=== PATIENT | female | born 1955 | race Caucasian/White ===

== ENCOUNTER 2023-04-22 12:07 | Outpatient (CLI) | payer MEDICARE, SELFPAY ==
[2023-04-22 13:30] LABS: Alanine Aminotransferase 33 U/L (6-35); Albumin Level 4.3 g/dL (3.5-5.1); Alkaline Phosphatase 49 U/L (38-126); Anion Gap 4 mmol/L (8-16); Aspartate Amino Transferase 25 U/L (14-36); Bilirubin,Total 0.7 mg/dL (0.2-1.3); Blood Urea Nitrogen 12 mg/dL (7-17); CRP 0.5 mg/dL (<1.0); Calcium 8.9 mg/dL (8.4-10.2); Carbon Dioxide 30 mmol/L (22-30); Chloride 104 mmol/L (98-107); Estimated Glomerular Filt Rate > 60; Glucose 95 mg/dL (65-110); Potassium 3.6 mmol/L (3.4-5.0); Sodium 138 mmol/L (137-145)
[2023-04-22 14:43] LABS: Hematocrit 41.9 % (37.0-47.0); Hemoglobin 13.3 g/dL (12.0-15.0); Mean Corpuscular HGB Conc 31.7 g/dl (32-36); Mean Corpuscular Hemoglobin 29.9 pg (26-34); Mean Corpuscular Volume 94.2 fl (80-100); Mean Platelet Volume 9.9 fl (7.4-10.4); Platelet Count Result 378 k/mm3 (150-375); Red Blood Count 4.45 M/mm3 (4.2-5.4); Red Cell Distribution Width 13.5 % (11.5-14.5); White Blood Count 7.3 K/mm3 (4.5-10.0)
[2023-04-22 16:16] LABS: Erythrocyte Sedimentation Rate 16 mm/hr (0-20)
== END 2023-04-22 12:08 | disposition home or self-care (01) ==
PROVIDERS: PCP Family Medicine; Visit Provider Nurse Practitioner Family
DX: K51.90 Ulcerative colitis, unspecified, without complications (principal); K22.70 Barrett's esophagus without dysplasia
CPT/HCPCS: 36415; 80053; 85027; 85652; 86140

== ENCOUNTER 2023-05-02 09:00 | Outpatient (NON) | payer MEDICARE, SELFPAY ==
[2023-05-08 14:56] LABS: Calprotectin, Stool 265 mcg/g
== END 2023-05-02 09:01 | disposition home or self-care (01) ==
LOC: ANHLAB 13:19
PROVIDERS: PCP Family Medicine; Visit Provider Nurse Practitioner Family
DX: K51.90 Ulcerative colitis, unspecified, without complications (principal)
CPT/HCPCS: 83993

== ENCOUNTER 2023-05-31 00:52 | Day surgery (SDC) | payer MEDICARE, SELFPAY ==
[2023-05-17 13:58] VITALS: BMI 28.2
--- NOTE | 2023-05-27 14:11 | SUR.PREOP ---
Patient called regarding upcoming procedure. Reviewed preop instructions, appointment times, and procedure prep.
[2023-05-31 09:00] VITALS: BP 140/71; PULSE 65; RESP 18; TEMP 36.2; O2SAT 100
[2023-05-31] MEDS: LACTATED RINGERS 1,000 ML 150 ML IV CONT (09:01)
--- NOTE | 2023-05-31 09:49 | WPDANESEPPF ---
Anes - Initial Pre Proc Eval Procedure: Operation Date: 05/31/23 10:00 Proposed Procedures p Esophagogastroduodenoscopy & Colonoscopy - Osbaldo Johnston MD Date/Time: 05/31/23 09:49 Surgeon: Osbaldo Johnston MD Pre Op Diagnosis: Tracey's esoph,GERD,diaphragmatic hernia; U.C. Patient Data Age: 68 Gender: F Height: 1.57 m Weight: 67.7 kg Last Vital Signs Temp 97.1 F L 05/31/23 09:00 Pulse 65 05/31/23 09:00 Resp 18 05/31/23 09:00 BP 140/71 05/31/23 09:00 Pulse Ox 100 05/31/23 09:00 O2 Del Method Room Air 05/31/23 09:00 Allergies Allergy/AdvReac Type Severity Reaction Status Date / Time No Known Allergies Allergy Unknown Verified 05/17/23 13:54 Home Medications Medication Instructions Recorded Confirmed Type amlodipine 10 mg tablet 10 mg PO DAILY 04/22/23 05/17/23 History calcium carbonate 600 mg calcium 600 mg PO DAILY 04/22/23 05/17/23 History (1,500 mg) tablet (Calcium) cholecalciferol (vitamin D3) 325 325 mcg PO WEEKLY 04/22/23 05/17/23 History mcg (13,000 unit) capsule mesalamine 1.2 gram tablet,delayed 4.8 g PO DAILY 04/22/23 05/17/23 History release omeprazole 40 mg capsule,delayed 40 mg PO BID 1 month #60 caps 04/22/23 05/17/23 Rx release Patient hx anesthesia problems: none Family hx anesthesia problems: none Results Review: All pre-operative results and documents have been reviewed as part of the pre-operative evaluation. [facility] Past Medical History Medical History (Updated 04/22/23 @ 14:23 by HERBERT Mario) Barretts esophagus Family hx of colon cancer GERD (gastroesophageal reflux disease) Hiatal hernia HTN (hypertension) Ulcerative colitis Social History Social History Smoking packs per day: 0.5 Smoking cigarettes per day: 10.0 Years smoked: 10 Smoking pack-years: 5.00 Smoking status: Former smoker Tobacco type: cigarettes Second hand tobacco smoke exposure: No Alcohol intake: current Drinks per week: 3 Substance use type: does not use Living arrangements: with family Spiritual care concerns: No Anes - Eval Final PreProcedure Day of Procedure 05/31/23 09:49 Patient weight: normal Heart: regular rate and rhythm Lungs: clear to auscultation Airway: Mallampati scale class II Neurological: alert and oriented Last oral intake: >/= 8 hours ASA classification: III Emergent: no Anesthetic plan: proceed Anesthesia type and monitoring: general GIVS and standard monitoring Results Review: All pre-operative results and documents have been reviewed as part of the pre-operative evaluation. Informed Consent: The patient's anesthetic plan and its attendant risks and benefits were discussed with the patient/family/POA. Questions were solicited and answers provided to the satisfaction of the patient/family/POA.
--- NOTE | 2023-05-31 09:59 | PM.HPGS ---
History of Present Illness History of Present Illness Consent: Risks, benefits, and alternatives have been discussed and questions answered. Patient agrees to proceed with procedure. Chief complaint: Tracey's esoph,GERD,diaphragmatic hernia; U.C. Narrative: Rosario Mckeon is a 68 year old female with Tracey's esophagus on ppi (she is supposed to use twice daily but sometimes forgets), also left sided UC diagnosed ~ 10 years ago on mesalamine. Never been on biologics. Last egd and colonoscopy 2019 (right colon was normal) Review of Systems Constitutional: Constitutional: Denies headache(s) and Denies weakness Eyes: Eyes: Denies blurry vision ENT: Reports Normal hearing present, Denies headache(s) and Denies neck pain Cardiovascular: Cardiovascular: Denies chest pain and Denies dyspnea Respiratory: Respiratory: Denies dyspnea Gastrointestinal: Gastrointestinal: Reports no additional gastrointestinal complaints Genitourinary: Genitourinary: Denies dysuria Musculoskeletal: Musculoskeletal: Denies neck pain Integumentary/Breasts: Skin/Breast: Denies dry skin Neurologic: Reports Normal hearing present, Denies headache(s) and Denies weakness Psychiatric: Psychiatric: Denies anxiety Endocrine: Endocrine: Denies change in body appearance Hematologic/Lymphatic: Hematologic/Lymphatic: Denies easy bleeding Allergic/Immunologic: Allergic/Immunologic: Denies urticaria PMFSH Past Medical History Medical History (Updated 05/31/23 @ 10:00 by Osbaldo Johnston MD) Barretts esophagus Family hx of colon cancer GERD (gastroesophageal reflux disease) Hiatal hernia HTN (hypertension) Left sided ulcerative colitis Ulcerative colitis Social History Social History Smoking packs per day: 0.5 Smoking cigarettes per day: 10.0 Years smoked: 10 Smoking pack-years: 5.00 Smoking status: Former smoker Tobacco type: cigarettes Second hand tobacco smoke exposure: No Alcohol intake: current Drinks per week: 3 Substance use type: does not use Living arrangements: with family Spiritual care concerns: No Meds Home Medications and Allergies Home Medications Medication Instructions Recorded Confirmed Type amlodipine 10 mg tablet 10 mg PO DAILY 04/22/23 05/17/23 History calcium carbonate 600 mg calcium 600 mg PO DAILY 04/22/23 05/17/23 History (1,500 mg) tablet (Calcium) cholecalciferol (vitamin D3) 325 325 mcg PO WEEKLY 04/22/23 05/17/23 History mcg (13,000 unit) capsule mesalamine 1.2 gram tablet,delayed 4.8 g PO DAILY 04/22/23 05/17/23 History release omeprazole 40 mg capsule,delayed 40 mg PO BID 1 month #60 caps 04/22/23 05/17/23 Rx release Allergies Allergy/AdvReac Type Severity Reaction Status Date / Time No Known Allergies Allergy Unknown Verified 05/17/23 13:54 Vital Signs Vital Signs - 24 hr 05/31/23 09:00 Temperature 97.1 F L Pulse Rate 65 Respiratory Rate 18 Blood Pressure 140/71 Pulse Oximetry 100 Oxygen Delivery Room Air Exam Const: General: comfortable and no acute distress HENMT: Face/Nose/Sinus: Normal nares present Eyes: General: appearance normal, both eyes and all related structures Neck: Neck: no JVD Resp: Auscultation: clear to auscultation bilaterally Cardio: Rate: regular rate Rhythm: regular rhythm GI: Inspection: non-distended GI Palp: Yes Soft to palpation Skin: General skin exam: normal color Neuro: General: gait normal Speech: normal speech Extrem: General: normal to inspection Psych: Mental Status: mental status grossly normal Assessment and Plan Assessment and plan (1) Barretts esophagus: Code(s): K22.70 - Tracey's esophagus without dysplasia Status: Acute Assessment and Plan: egd with bx on ppi (2) Left sided ulcerative colitis: Code(s): K51.50 - Left sided colitis without complications Status: Acute Assessment and Plan: colonoscopy on jones
--- NOTE | 2023-05-31 10:16 | SUR.OPER ---
EGD END 1010 COLONOSCOPY START 101
[2023-05-31 10:27] VITALS: BP 99/59; PULSE 70; RESP 18; O2SAT 100
[2023-05-31 10:37] VITALS: BP 124/79; PULSE 72; RESP 18; O2SAT 100
[2023-05-31 10:47] VITALS: BP 131/80; PULSE 70; RESP 18; O2SAT 100
== END 2023-05-31 11:10 | disposition home or self-care (01) ==
PROVIDERS: PCP Family Medicine; Visit Provider Internal Medicine Gastroenterology
PROC: 0DJ08ZZ Inspection of Upper Intestinal Tract, Via Natural or Artificial Opening Endoscopic (ICD-10-PCS; CPT 43235; principal; 2023-05-31 10:00)
DX: K51.50 Left sided colitis without complications (principal); K57.30 Diverticulosis of large intestine without perforation or abscess without bleeding; K64.8 Other hemorrhoids; K22.70 Barrett's esophagus without dysplasia; K44.9 Diaphragmatic hernia without obstruction or gangrene; K29.50 Unspecified chronic gastritis without bleeding; K21.00 Gastro-esophageal reflux disease with esophagitis, without bleeding; I10 Essential (primary) hypertension; Z80.0 Family history of malignant neoplasm of digestive organs; Z87.891 Personal history of nicotine dependence
CPT/HCPCS: 45380; 43239; 88305; J2704; J7120

== ENCOUNTER 2023-09-02 07:37 | Outpatient (CLI) | payer MEDICARE, SELFPAY ==
--- NOTE | ~2023-09-02 | CT_ITS ---
NAME: Rosario Mckeon DATE OF : 51 EXAMINATION: CT ABDOMEN AND PELVIS DATE: 09/02/23 at 7:51 AM INDICATION: Unspecified abdominal pain. TECHNIQUE: Computed tomography (CT) of the abdomen and pelvis was performed with 100 mL Omnipaque 350 intravenous contrast. Automated exposure control and iterative reconstruction technique were employed. The dose-length product was 393 mGy-cm. COMPARISON: None. FINDINGS: The visualized portions of the lung bases demonstrate mild atelectasis. No pleural effusion. Cardiomegaly is noted. No pericardial effusion. There is a large sliding hiatal hernia. The liver, gallbladder, spleen, pancreas, and adrenal glands are normal. There is cortical thinning of the kidneys. There is diverticulosis of the colon without evidence of diverticulitis. The appendix is normal. There are no pathologically enlarged lymph nodes. There is no free intraperitoneal fluid. There is severe lower lumbar spondylosis. Lumbar dextroscoliosis is noted. IMPRESSION: 1. Large sliding hiatal hernia. Reviewed, dictated and finalized at location A. MTDD
[2023-09-02 07:55] LABS: Estimated Glomerular Filt Rate > 60
== END 2023-09-02 07:38 | disposition home or self-care (01) ==
LOC: ANHIMG 07:38
PROVIDERS: PCP Family Medicine; Visit Provider Nurse Practitioner Family
DX: K51.50 Left sided colitis without complications (principal); R10.9 Unspecified abdominal pain
CPT/HCPCS: 36415; 74177; Q9967

== ENCOUNTER 2023-10-25 08:51 | Outpatient (CLI) | payer MEDICARE, SELFPAY ==
[2023-10-25 09:24] LABS: Hematocrit 38.2 % (37.0-47.0); Hemoglobin 12.2 g/dL (12.0-15.0); Mean Corpuscular HGB Conc 31.9 g/dl (32-36); Mean Corpuscular Volume 93.9 fl (80-100); Platelet Count Result 344 k/mm3 (150-375); Red Blood Count 4.07 M/mm3 (4.2-5.4); Red Cell Distribution Width 14.2 % (11.5-14.5); White Blood Count 7.5 K/mm3 (4.5-10.0)
[2023-10-25 09:42] LABS: Alanine Aminotransferase 22 U/L (6-35); Albumin Level 4.1 g/dL (3.5-5.1); Alkaline Phosphatase 40 U/L (38-126); Anion Gap 6 mmol/L (4-12); Aspartate Amino Transferase 23 U/L (14-36); Bilirubin,Total 0.8 mg/dL (0.2-1.3); Blood Urea Nitrogen 15 mg/dL (7-17); CRP < 0.5 mg/dL (<1.0); Carbon Dioxide 28 mmol/L (22-30); Chloride 107 mmol/L (98-107); Estimated Glomerular Filt Rate > 60; Glucose 98 mg/dL (65-110); Potassium 3.4 mmol/L (3.4-5.0); Sodium 141 mmol/L (137-145)
[2023-10-25 09:58] LABS: Erythrocyte Sedimentation Rate 22 mm/hr (0-20)
[2023-11-01 00:54] LABS: Calprotectin, Stool 689 mcg/g
== END 2023-10-25 08:52 | disposition home or self-care (01) ==
LOC: ANHLAB 08:53
PROVIDERS: PCP Family Medicine; Visit Provider Nurse Practitioner Family
DX: K51.90 Ulcerative colitis, unspecified, without complications (principal)
CPT/HCPCS: 36415; 80053; 83993; 85027; 85652; 86140

== ENCOUNTER 2024-01-05 10:58 | Outpatient (CLI) | payer MEDICARE, SELFPAY ==
[2024-01-11 21:48] LABS: Calprotectin, Stool 2640 mcg/g
== END 2024-01-05 10:59 | disposition home or self-care (01) ==
LOC: ANHLAB 10:59
PROVIDERS: PCP Family Medicine; Visit Provider Nurse Practitioner Family
DX: K51.50 Left sided colitis without complications (principal)
CPT/HCPCS: 83993

== ENCOUNTER 2024-03-01 08:31 | Outpatient (CLI) | payer MEDICARE, SELFPAY ==
--- NOTE | ~2024-03-01 | XR_ITS ---
EXAMINATION: XR small bowel follow through DATE: 03/01/2024 10:10 INDICATION: Colon inflammation. TECHNIQUE: Oral contrast was administered, and a time course of radiographs of the abdomen was obtain ed. Fluoroscopy of the small bowel was performed. Fluoroscopy exposure time was 0.2 minutes. The tota l number of images was 12. COMPARISON: CT abdomen pelvis 09/02/2023 FINDINGS: There are no dilated loops of bowel. There is no abnormal mass or stricture. The terminal ileum is no rmal. Transit time from the stomach to proximal colon was approximately 45 minutes. IMPRESSION: 1. Normal small bowel series. Reviewed, dictated and finalized at location A.
== END 2024-03-01 08:32 | disposition home or self-care (01) ==
LOC: ANHIMG 08:33
PROVIDERS: PCP Family Medicine; Visit Provider Nurse Practitioner Family
DX: R19.5 Other fecal abnormalities (principal)
CPT/HCPCS: 74250

== ENCOUNTER 2024-05-10 11:05 | Outpatient (CLI) | payer MEDICARE, SELFPAY ==
[2024-05-10 12:23] LABS: Hematocrit 36.2 % (37.0-47.0); Hemoglobin 11.8 g/dL (12.0-15.0); Mean Corpuscular HGB Conc 32.6 g/dl (32-36); Mean Corpuscular Hemoglobin 30.6 pg (26-34); Mean Corpuscular Volume 93.8 fl (80-100); Mean Platelet Volume 9.4 fl (7.4-10.4); Platelet Count Result 397 k/mm3 (150-375); Red Blood Count 3.86 M/mm3 (4.2-5.4); Red Cell Distribution Width 13.3 % (11.5-14.5); White Blood Count 9.7 K/mm3 (4.5-10.0)
[2024-05-10 12:43] LABS: Alanine Aminotransferase 14 U/L (6-35); Albumin Level 4.2 g/dL (3.5-5.1); Alkaline Phosphatase 46 U/L (38-126); Anion Gap 5 mmol/L (4-12); Aspartate Amino Transferase 21 U/L (14-36); Bilirubin,Total 0.6 mg/dL (0.2-1.3); Blood Urea Nitrogen 17 mg/dL (7-17); CRP < 0.5 mg/dL (<1.0); Calcium 8.7 mg/dL (8.4-10.2); Carbon Dioxide 27 mmol/L (22-30); Chloride 107 mmol/L (98-107); Estimated Glomerular Filt Rate > 60; Glucose 93 mg/dL (65-110); Potassium 3.7 mmol/L (3.4-5.0); Sodium 139 mmol/L (137-145)
[2024-05-10 13:02] LABS: Erythrocyte Sedimentation Rate 50 mm/hr (0-20)
[2024-05-14 15:53] LABS: NIL 0.01 IU/mL; Quantiferon TB Plus, 1T NEGATIVE (NEGATIVE); TB2-NIL 0.01 IU/mL
== END 2024-05-10 11:06 | disposition home or self-care (01) ==
LOC: ANHLAB 11:07
PROVIDERS: PCP Family Medicine; Visit Provider Nurse Practitioner Family
DX: K51.50 Left sided colitis without complications (principal)
CPT/HCPCS: 36415; 80053; 85027; 85652; 86038; 86039; 86140; 86480

== ENCOUNTER 2024-05-14 14:00 | Outpatient (CLI) | payer MEDICARE, SELFPAY ==
[2024-05-14 17:40] LABS: Toxigenic C. Diff NEGATIVE (NEGATIVE)
[2024-05-16 14:02] LABS: Trichrome Ova and Parasites STATUS: FINAL
== END 2024-05-14 14:01 | disposition home or self-care (01) ==
PROVIDERS: PCP Family Medicine; Visit Provider Nurse Practitioner Family
DX: R19.5 Other fecal abnormalities (principal); K51.50 Left sided colitis without complications
CPT/HCPCS: 83993; 87045; 87177; 87209; 87427; 87449; 87493

== ENCOUNTER 2024-08-03 10:20 | Outpatient (CLI) | payer MEDICARE, SELFPAY ==
--- OUTSIDE RECORDS SUMMARY | 2024-08-03 10:39 | XMS_ITS | Encounter Summary ---
Author Organization [facility] Address [facility] [place] [address] Care Team Providers Care Livestock Nutritionist Name Role Phone Robbin Beckham MD Primary Care Provider Encounter Details Date Type Department Care Team (Late st Contact Info) Description 12/28/2021 Therapy Plan [facility] [address] [place] [address] Ivanna Yip MD [address] [place] [phone] Social History Tobacco Use Types Packs/Day Years Used Date Smoking Tobacco: Former Cigarettes Q uit: 2006 Smokeless Tobacco: Never Comments:former user tobacco - quit 2006 Alcohol Use Standard Drinks/Week Comments Yes 0 (1 standard drink = 0.6 oz pur e alcohol) social PHQ-2 Answer Date Recorded PHQ-2 Score - If the patient scores above 3, please move on to questions 3-9 0 11/13/2021 Comments No Sex and Gender Information Value Date Recorded Sex Assigned at Female 03/12/2019 7:27 AM CDT Legal Sex Female 5:32 PM CDT Gender Identity Female 03/12/2019 7:27 AM CDT Sexual Orientation Straight 03/12/2019 7: 27 AM CDT Occupation Industry Job Start Date Job End Date Not on file Not on file Not on file Not on file COVID-19 Exposure Response Date Recorded In the last 10 days, have yo u been in contact with someone who was confirmed or suspected to have Coronavirus/COVID-19? No / Unsure 12/31/2021 8:08 AM CDT documented as of this encounter Plan of Treatment Not on file documented as of this encounter Visit Diagnoses Diagnosis Age-related osteoporosis without current pathological fracture- Primary Senile osteoporosis documented in this encounter Additional Health Concerns Infection Onset Date Last Indicated Resolved Time COVID-19 Rule Out 08/05/2022 08/05/2022 08/05/2022 10:03 AM DEBONE PROCESSING SUPERVISOR COVID-19 Confirmed 08/05/2022 08/05/2022 12:32 AM CDT Assessment Noted Time PHQ-9 Depression Total Score: 0 05/07/20 9:12 AM DEBONE PROCESSING SUPERVISOR documented as of this encounter Care Teams Livestock Nutritionist Relationship Specialty [place] [address] [place] [address] PCP - General FAMILY PRACTICE 05/10/18 documented as of this encounter
--- OUTSIDE RECORDS SUMMARY | 2024-08-03 10:39 | XMS_ITS | Referral Summary ---
Author Organization [facility] Address [address] [place] [address] Care Team Providers Care Bread Molder Name Role Phone Robbin Beckham MD Primary Care Provider [phone] Amada Barahona NP Unavailable [phone] Haydee Fleming Unavailable [phone] Encounters Date Type Department Care Team Description 07/24/2024 10:45 AM METAL PATTERNMAKER Office Visit [facility] Orthopaedic Surgery [address] [address] [place] [address] Solitario Serna MD Rotator cuff arthropathy of left shoulder (Primary Dx); Traumatic complete tear of left rotator cuff, initial encounter 07/23/2024 Telephone [facility] [address] [facility] [address] [place] [address] Ivanna Yip MD 06/05/2024 3:20 PM METAL PATTERNMAKER - 06/05/2024 11:59 PM METAL PATTERNMAKER Hospital Encounter [facility] [address] [place] [id number] Discharge Disposition: Discharge to home or self care 06/05/2024 1:19 PM METAL PATTERNMAKER - 06/05/2024 11:59 PM METAL PATTERNMAKER Hospital Encounter [facility] [address] [place] [address] Discharge Disposition: Discharge to home or self care 06/05/2024 1:30 PM METAL PATTERNMAKER Office Visit [facility] Orthopaedic Surgery [address] [place] [phone] Benjamin Mora PA Rotator cuff arthropathy of left shoulder (Primary Dx); Chronic left shoulder pain from Last 3 Months Allergies No known active allergies Medications amLODIPine (NORVASC) 10 mg tablet Take 1 tablet (10 mg total) by mouth daily 5 8 Active mesalamine (LIALDA) 1.2 gram EC tabletIndicatio ns:Ulcerative Colitis TAKE 4 TABLETS BY MOUTH DAILY 5 8 Active omeprazole (PriLOSEC) 40 mg capsule Take 1 capsule (40 mg total) by mouth 1 8 Active ergocalciferol (VITAMIN D) 50,000 unit capsuleIndicati ons:Vitamin D Deficiency Take one capsule twice a week x 12 weeks then, repeat labs 24 capsule 8 Active Additional Information Patient not taking.Reported on 12/28/2022 clobetasol (TEMOVATE) 0.05 % cream SAURABH EXT AA BID 0 9 Active hydrocortisone 1 % cream SAURABH EXT AA BID 1 9 Active potassium chloride ER (KLOR-CON) 20 mEq CR tablet Take 20 mEq by mouth daily 9 Active calcium carbonate (CALCIUM 600 ORAL) Take by mouth 600MG SOME DAYS Active cholecalciferol (VITAMIN D-3) 400 unit capsule Active Active Problems Problem Noted Date Diagnosed Date Age-related osteoporosis wit hout current pathological fracture 05/04/2018 Closed stable burst fracture of eighth thoracic vertebra with routine healing 03/30/2018 Social History Tobacco Use Types Packs/Day Years Used Date Smoking Tobacco: Former Cigarettes Q uit: 2006 Smokeless Tobacco: Never Alcohol Use Standard Drinks/Week Comments Defer 0 (1 standard drink = 0.6 oz pur e alcohol) Comments Unknown Sex and Gender Information Value Date Recorded Sex Assigned at Not on file Legal Sex Female 3:39 AM METAL PATTERNMAKER Gender Identity Not on file Sexual Orientation Not on file 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 file Not on file Not on file Last Filed Vital Signs Vital Sign Reading Time Taken Comments Blood Pressure - - Pulse - - Temperature - - Respiratory Rate - - Oxygen Saturation - - Inhaled Oxygen Concentration - - Weight 67.6 kg (149 lb) 06/05/2024 1:16 PM METAL PATTERNMAKER Height 157.5 cm (5' 2 ) 06/05/2024 1:16 PM METAL PATTERNMAKER Body Mass Index 27.25 06/05/2024 1:16 PM METAL PATTERNMAKER Plan of Treatment Not on file Procedures Procedure Name Priority Date/Time Associated Diagnosis Comments XR TRANSFER OF OUTSIDE FILMS Routine 06/05/2024 3:20 PM METAL PATTERNMAKER XR SHOULDER LEFT 2 OR MORE VIEWS Schedule Routine, Read Routine (OP Routine) 06/05/2024 1:26 PM METAL PATTERNMAKER Chronic left shoulder pain DEXA TBS AXIAL SKELETON BONE DENSITY 1 OR MORE SITES Schedule Routine, Read Routine (OP Routine) 12/28/2022 10:49 AM CDT Age-related osteoporosis without current pathological fracture from Last 3 Months or Most Recently Relevant to Health Maintenance Results * XR Outside Reference (06/05/2024 3:20 PM METAL PATTERNMAKER) Impressions [facility] - 06/05/2024 3:20 PM METAL PATTERNMAKER These images are for Reference purposes only and have not been reviewed by [facility] Radiology. There will be no report generated by a [facility] Radiologist. Narrative [facility] - 06/05/2024 3:20 PM METAL PATTERNMAKER EXAMINATION: Images For Reference Purposes Only us Benjamin PEDERSEN IMDelia XR PROCEDURES Final Result [facility] * XR Shoulder Left 2+ View (06/05/2024 1:26 PM METAL PATTERNMAKER) Anatomical Region Laterality Modality Upper Extremities, Shoulder Left Comp uted Radiography 06/05/2024 1:27 PM METAL PATTERNMAKER Impressions 06/05/2024 1:27 PM METAL PATTERNMAKER Mild left rotator cuff arthropathy and moderate left acromioclavicular osteoarthritis. Electronically signed by: Vivek Armas M.D. Narrative 06/05/2024 1:27 PM METAL PATTERNMAKER EXAMINATION: XR SHOULDER LEFT 2 OR MORE VIEWS HISTORY: left shoulder pain COMPARISON: None available FINDINGS: No acute fracture. There is superior subluxation of the humerus with respect to the glenoid consistent with rotator cuff arthropathy. Moderate left acromio clavicular and mild left glenohumeral joint osteoarthritis. Partially imaged degenerative disc and joint disease in the cervical spine. Procedure Note Vivek Armas MD - 06/05/2024 EXAMINATION: XR SHOULDER LEFT 2 OR MORE VIEWS HISTORY: left shoulder pain COMPARISON: None available FINDINGS: No acute fracture. There is superior subluxation of the humerus with respect to the glenoid consistent with rotator cuff arthropathy. Moderate left acromio clavicular and mild left glenohumeral joint osteoarthritis. Partially imaged degenerative disc and joint disease in the cervical spine. IMPRESSION: Mild left rotator cuff arthropathy and moderate left acromioclavicular osteoarthritis. Electronically signed by: Vivek Armas M.D. Benjamin PEDERSEN IMG XR PROCEDURES Final Result * Dexa TBS Axial Skeleton Bone Density 1 or more sites (12/28/2022 10:49 AM CDT) Anatomical Region Laterality Modality Wrist, Body N/A Radiographic Anai ging Narrative 12/28/2022 8:41 PM CDT Patient Name: Oscar Mckeon Date of : 1955 Date of scan: 12/28/2022 Bone mineral density was performed on a Eval[employer] Discovery Densitometer. Based on machine cross-calibration and precision studies the least significant changes of this densitometer is 0.024 g/cm2 at the spine, 0.020 g/cm2 at the total proximal femur, and 0.014g/cm2 at the forearm. HISTORY: This is a 67 y.o. postmenopausal female with a history of osteoporosis, ulcerative colitis, and vitamin D deficiency. She reports that she quit smoking about 16 years ago. She has never used smokeless tobacco. Currently on treatment with vitamin D and previously treated with zoledronic acid (Reclast) and hormone replacement therapy. INDICATIONS: Menopause status, history of prior vertebral fracture, vitamin D deficiency, and history of osteoporosis. FINDINGS: BONE MINERAL DENSITY OF THE LUMBAR SPINE Bone Mineral Density (BMD) of the lumbar spine was measured from L1-L3 and the average density was calculated to be 0.890 gm/cm2. This corresponds to a T-score (standard deviations from the mean of young adults) of -1.2. When compared to the previous study of 12/08/2021 there has been a 0.025 gm/cm (2.8%) increase in bone density that is considered significant. BONE MINERAL DENSITY OF THE PROXIMAL FEMUR Bone Mineral Density (BMD) of the left hip total was found to be 0.767 gm/cm2. This corresponds to a T-score standard deviations from the mean of young adults of -1.4. Femoral neck is 0.679 gm/cm2 with a T-score (standard deviations from the mean of young adults) of -1.5. When compared to the previous study of 12/08/2021 there has been a -0.037 gm/cm (-4.6%) decrease in bone density that is considered significant. SUMMARY: Bone mineral density shows evidence of low bone mass at the lumbar spine and proximal femur and moderately increased fracture risk (Osteopenia). There is a significant increase noted in the spine and a significant decrease noted in the hip since the previous exam. L4 excluded from bone mineral density analysis of the lumbar spine to compare to previous scan. The lumbar spine Trabecular Bone Score is 1.139 which suggests degraded bone microarchitecture compared to the general population. Final decisions regarding diagnostic or therapeutic recommendations should include BMD, TBS, additional clinical risk factors as well the clinical context of the patient. Please see attached TBS results for further details. ADDITIONAL COMMENTS: Postmenopausal Women and Men Over 50: Diagnostic criteria: Osteoporosis: BMD at or below -2.5 T-score; Osteopenia (low bone mass): BMD between -1.0 and -2.5 T-score. If the patient has a history of a fragility fracture, a fracture that occurred with trauma equivalent to a fall from a standing position or less, then the diagnosis is osteoporosis regardless of bone density. The history and data sections of the bone mineral density scan were prepared by Edie Nassar)([facility]) who is accredited by the International Society of Clinical Densitometry. The overall patient assessment and scan interpretation were performed by Ivanna Yip M.D. who is certified by the International Society of Clinical Densitometry. [id number] Ivanna Yip MD IMG DXA PROCEDURES Final Resu lt from Last 3 Months or Most Recently Relevant to Health Maintenance Insurance [employer] [facility] Loopback ACCESS MEDICARE [employer] MEDICARE [employer] MEDICARE [employer] Care Teams Bread Molder Relationship Specialty [place] [address] [place] [address] PCP - General 01/06/18 [place] [address] [place] [address] Family Practice 01/06/18 Haydee Fleming, SLAVA [address] [place] [address] Physician Oven Technician Physician Oven Technician 05/08/24
--- OUTSIDE RECORDS SUMMARY | 2024-08-03 10:39 | XMS_ITS | Encounter Summary ---
Author Organization [facility] Address [facility] [place] [address] Care Team Providers Care Sequencing Machine Operator Name Role Phone Robbin Beckham MD Primary Care Provider [phone] Encounter Details Date Type Department Care Team (Late st Contact Info) Description 10/11/2023 [employer] Message Enc [facility] Medical Group Family & Internal Medicine [facility] [address] [place] [phone] [place] Provider Due for appt Social History Tobacco Use Types Packs/Day Years Used Date Smoking Tobacco: Former Cigarettes Q uit: 2006 Passive Smoke Exposure: Past Smokeless Tobacco: Never Comments:former user tobacco - quit 2006 Alcohol Use Standard Drinks/Week Comments Yes 0 (1 standard drink = 0.6 oz pur e alcohol) social (2 per week) PHQ-2 Answer Date Recorded Patient Health Questionnaire-2 Score 0 10/10/2023 Comments No Sex and Gender Information Value Date Recorded Sex Assigned at Female 03/12/2019 7:27 AM CDT Legal Sex Female 5:32 PM CDT Gender Identity Female 03/12/2019 7:27 AM CDT Sexual Orientation Straight 03/12/2019 7: 27 AM CDT Occupation Industry Job Start Date Job End Date Not on file Not on file Not on file Not on file documented as of this encounter Plan of Treatment Not on file documented as of this encounter Visit Diagnoses Not on filedocumented in this encounter Additional Health Concerns Assessment Noted Time PHQ-9 Depression Total Score: 0 11/18/20 21 9:12 AM PRODUCTION TECHNICIAN documented as of this encounter Care Teams Sequencing Machine Operator Relationship Specialty Start [place] [address] [place] [address] PCP - General FAMILY PRACTICE 05/10/18 documented as of this encounter
--- OUTSIDE RECORDS SUMMARY | 2024-08-03 10:39 | XMS_ITS | Clinical Summary ---
Author Organization [facility] Address [address] [place] [address] Care Team Providers Care Dough Cutter Name Role Phone Robbin Beckham MD Primary Care Provider [phone] Amada Barahona NP Unavailable [phone] Haydee Fleming Unavailable [phone] Allergies No known active allergies Medications amLODIPine [...] eighth thoracic vertebra with routine healing 03/30/2018 Encounters Date Type Department Care Team Description 07/24/2024 10:45 AM PARTS WASHER Office Visit [facility] [address] [facility] 2[address] [place] [address] Solitario Serna MD Rotator cuff arthropathy of left shoulder (Primary Dx); Traumatic complete tear of left rotator cuff, initial encounter 07/23/2024 Telephone [facility] [address] [place] [address] Ivanna Yip MD 06/05/2024 3:20 PM PARTS WASHER - 06/05/2024 11:59 PM PARTS WASHER Hospital Encounter [facility] [address] [place] [address] Discharge Disposition: Discharge to home or self care 06/05/2024 1:30 PM PARTS WASHER Office Visit [facility] [address] [facility] 2[address] [place] [address] Benjamin Mora PA Rotator cuff arthropathy of left shoulder (Primary Dx); Chronic left shoulder pain 06/05/2024 1:19 PM PARTS WASHER - 06/05/2024 11:59 PM PARTS WASHER Hospital Encounter [facility] [id number] [place] [address] Discharge Disposition: Discharge to home or self care from Last 3 Months Surgical History Surgery Date Site/Laterality Comments HYSTERECTOMY Medical History Medical History Date Comments Arthritis Gastroesophagitis Sleep apnea Ulcerative colitis (HCC) Family History Medical History Relation Name Comments Arthritis Father Hypertension Father Cancer Mother Osteoporosis Mother Hip fracture Sister Osteoporosis Sister Scoliosis Neg Hx Relation Name Status Comments Father Mother Sister Social History Tobacco Use Types Packs/Day Years Used Date Smoking Tobacco: Former Cigarettes Q uit: 2006 Smokeless Tobacco: Never Alcohol Use Standard Drinks/Week Comments Defer 0 (1 standard drink = 0.6 oz pur e alcohol) Comments Unknown Sex and Gender Information Value Date Recorded Sex Assigned at Not on file Legal Sex Female 3:39 AM PARTS WASHER Gender Identity Not on file Sexual Orientation Not on file 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 file Not on file Not on file Obstetrics History Last Filed Vital Signs Vital Sign Reading Time Taken Comments Blood Pressure - - Pulse - - Temperature - - Respiratory Rate - - Oxygen Saturation - - Inhaled Oxygen Concentration - - Weight 67.6 kg (149 lb) 06/05/2024 1:16 PM PARTS WASHER Height 157.5 cm (5' 2 ) 06/05/2024 1:16 PM PARTS WASHER Body Mass Index 27.25 06/05/2024 1:16 PM PARTS WASHER Plan of Treatment Health Maintenance Due Date Last Done Comments Colon Cancer Screening-Colonoscopy 1955 Depression Screening 1955 Fall Risk Assessment 1955 Hepatitis C Screening 1955 DTaP/Tdap/Td Vaccine (1 - Tdap) 1964 Hepatitis B Screening 1971 Well Visit 65+ 2018 Pneumococcal vaccine 65+ (2 of 2 - PCV) 04/22/2021 04/22/2020 Covid-19 Vaccine (4 - 2023-2 5 season) 2024 06/03/2021, 08/29/2020, 08/01/2020 Breast Cancer Screening-Mammogram 09/25/2024 09/26/2023, 09/26/2023, 09/02/2021 Osteoporosis Screening-Bone Density Scan 12/28/2024 12/28/2022, 12/08/2021, 12/02/2020, Additional history exists Zoster Vaccine Completed 09/14/2021, 05/20, 11/18/2014 Influenza Vaccine Completed 04/12/2024, 05/03/2022 Procedures Procedure Name Priority Date/Time Associated Diagnosis Comments XR TRANSFER OF OUTSIDE FILMS Routine 06/05/2024 3:20 PM PARTS WASHER XR SHOULDER LEFT 2 OR MORE VIEWS Schedule Routine, Read Routine (OP Routine) 06/05/2024 1:26 PM PARTS WASHER Chronic left shoulder pain DEXA TBS AXIAL SKELETON BONE DENSITY 1 OR MORE SITES Schedule Routine, Read Routine (OP Routine) 12/28/2022 10:49 AM CDT Age-related osteoporosis without current pathological fracture from Last 3 Months or Most Recently Relevant to Health Maintenance Results * XR Outside Reference (06/05/2024 3:20 PM PARTS WASHER) Impressions [facility] - 06/05/2024 3:20 PM PARTS WASHER These images are for Reference purposes only and have not been reviewed by [facility]. There will be no report generated by a [facility] Radiologist. Narrative [facility] - 06/05/2024 3:20 PM PARTS WASHER EXAMINATION: Images For Reference Purposes Only Benjamin PEDERSEN IMG XR PROCEDURES Final Result [facility] * XR Shoulder Left 2+ View (06/05/2024 1:26 PM PARTS WASHER) Anatomical Region Laterality Modality Upper Extremities, Shoulder Left Comp uted Radiography 06/05/2024 1:27 PM PARTS WASHER Impressions 06/05/2024 1:27 PM PARTS WASHER Mild left rotator cuff arthropathy and moderate left acromioclavicular osteoarthritis. Electronically signed by: Vivek Armas M.D. Narrative 06/05/2024 1:27 PM PARTS WASHER EXAMINATION: XR SHOULDER LEFT 2 OR MORE [...] Narrative 12/28/2022 8:41 PM CDT Patient Name: Rosario Mckeon Date of : 1955 Date of scan: 12/28/2022 Bone mineral density was performed on a HoloConisus Discovery Densitometer. Based on machine cross-calibration and [...] mineral density scan were prepared by Edie Nassar)(CBDT) who is accredited by the International Society of Clinical Densitometry. The overall patient assessment and scan interpretation were performed by Ivanna Yip M.D. who is certified by the International Society of Clinical Densitometry. [id number] Ivanna Yip MD IMG DXA PROCEDURES Final Resu lt from Last 3 Months or Most Recently Relevant to Health Maintenance Insurance [facility]ESS MEDICARE [facility] MEDICARE [facility] MEDICARE [facility] Care Teams Dough Cutter Relationship Specialty [place] [address] [address] PCP - General 01/06/18 [place] [address] [address] [address] Family Practice 01/06/18 [place] [address] [address] [address] Physician [employer] Warrant Officer Physician [employer] Warrant Officer 05/08/24
--- OUTSIDE RECORDS SUMMARY | 2024-08-03 10:39 | XMS_ITS | Encounter Summary ---
Author Organization [facility] Address Formerly [facility] [place] [address] Care Team Providers Care Pbx Operator Name Role Phone Robbin Beckham MD Primary Care Provider Encounter Details Date Type Department Care Team (Late st Contact Info) Description 01/24/2023 Therapy Plan [facility] One Day Services [address] [place] [address] Ivanna Yip MD [address] [place] [phone] Social History Tobacco Use Types Packs/Day Years Used Date Smoking Tobacco: Former Cigarettes Q uit: 2006 Passive Smoke Exposure: Past Smokeless Tobacco: Never Comments:former user tobacco - quit 2006 Alcohol Use Standard Drinks/Week Comments Yes 0 (1 standard drink = 0.6 oz pur e alcohol) social PHQ-2 Answer Date Recorded Patient Health Questionnaire-2 Score 0 09/13/2022 Comments No Sex and Gender Information Value [...] documented in this encounter Additional Health Concerns Assessment Noted Time PHQ-9 Depression Total Score: 0 05/07/20 9:12 AM VICE PRESIDENT OF BUSINESS DEVELOPMENT documented as of this encounter Care Teams Pbx Operator Relationship Specialty [place] [address] [place] [address] PCP - General FAMILY PRACTICE 05/10/18 documented as of this encounter
--- OUTSIDE RECORDS SUMMARY | 2024-08-03 10:39 | XMS_ITS | Encounter Summary ---
Author Organization [facility] Address [facility] [place] [address] Care Team Providers Care Senior Supplier Quality Engineer Name Role Phone Robbin Beckham MD Primary Care Provider Encounter Details Date Type Department Care Team (Late st Contact Info) Description 11/22/2019 Prep for Procedure [facility] Day Services [address] [place] [address] Mohan Lamas MD [address] [address] Social History Tobacco Use Types Packs/Day Years Used Date Smoking Tobacco: Former Cigarettes Q uit: 2013 Smokeless Tobacco: Never Alcohol Use Standard Drinks/Week Comments Yes 0 (1 standard drink = 0.6 oz pur e alcohol) social PHQ-2 Answer Date Recorded PHQ-2 Score 0 05/21/2019 Comments No Sex and Gender Information Value [...] Exposure Response Date Recorded In the last month, have you been in contact with someone who was confirmed or suspected to have Coronavirus / COVID-19? No / Unsure 10/26/2019 2:28 PM CDT documented as of this encounter Plan of Treatment Not on file documented as of this encounter Results * PRE-SURGICAL/PRE-PROCEDURE CORONAVIRUS (COVID 19) (11/26/2019 1:08 PM CDT) CORONAVIRUS SARS COV 2 PCR (RESP) NOT DETECTED NOT DETECTED 11/27/2019 8:09 PM CDT [facility] Comment: A Not Detected (negative) test result for this test means that SARS- CoV-2 RNA was not present in the specimen above the limit of detection. A negative result does not rule out the possibility of COVID-19 and should not be used as the sole basis for treatment or patient management decisions. If COVID-19 is still suspected, based on exposure history together with other clinical findings, re-testing should be considered in consultation with public health authorities. Laboratory test results should always be considered in the context of clinical observations and epidemiological data in making a final diagnosis and patient management decisions. Please review the Fact Sheets and FDA authorized labeling available for health care providers and patients using the following websites: https://[email or web address]/home/Covid-19/HCP/NAAT/fact-sheet2 https://www.[employer].Plickers/home/Covid-19/Patients/NAAT/ fact-sheet2 This test has been authorized by the FDA under an Emergency Use Authorization (EUA) for use by authorized laboratories. Due to the current public health emergency, [facility] is receiving a high volume of samples from a wide variety of swabs and media for COVID-19 testing. In order to serve patients during this public health crisis, samples from appropriate clinical sources are being tested. Negative test results derived from specimens received in non-commercially manufactured viral collection and transport media, or in media and sample collection kits not yet authorized by FDA for COVID-19 testing should be cautiously evaluated and the patient potentially subjected to extra precautions such as additional clinical monitoring, including collection of an additional specimen. Methodology: Nucleic Acid Amplification Test (NAAT) includes PCR or TMA Additional information about COVID-19 can be found at the [facility] website: www.[employer]store[employer].[email or web address]/Covid19. Test performed at [facility] [place] [address] [place] [address] Director: MARIO MIJARES DO,MPH NASOPHARYNGEAL SWAB / Unknown 11/26/2019 1:08 PM CDT us Mohan Lamas MD MICROBIOLOGY - GENERAL ORDERABLE S Final Result [facility] [address] [place] [address], documented in this encounter Visit Diagnoses Diagnosis Pre-op exam- Primary Preoperative examination, unspecified documented in this encounter Additional Health Concerns Infection Onset Date Last Indicated Resolved Time COVID-19 Rule Out 11/26/2019 11/26/2019 11/27/2019 8:09 PM CDT COVID-19 Rule Out 08/05/2022 08/05/2022 08/05/2022 10:03 AM PAINT ROLLER COVERS SUPERVISOR COVID-19 Confirmed 08/05/2022 08/05/2022 12:32 AM CDT documented as of this encounter Care Teams Senior Supplier Quality Engineer Relationship Specialty [place] [address] [place] [address] PCP - General FAMILY PRACTICE 05/10/18 documented as of this encounter
--- OUTSIDE RECORDS SUMMARY | 2024-08-03 10:40 | XMS_ITS | Clinical Summary ---
Author Organization [facility] Address [facility] [place] [address] Care Team Providers Care Raimann Machine Operator Name Role Phone Bairon Beckham MD Primary Care Provider Allergies No known active allergies Medications calcium carbonate 1250 (500 Ca) MG tablet Take 1 tablet (1,250 mg total) by mouth daily. Active Cholecalciferol (VITAMIN D) 50 MCG (1999 UT) Tab Ac tive dicyclomine (BENTYL) 10 MG capsule Take 1 capsule (10 mg total) by mouth 4 (four) times daily before meals and nightly. Active amLODIPine (NORVASC) 10 MG tabletIndications :Essential hypertension TAKE 1 TABLET(10 MG) BY MOUTH DAILY 90 tablet 1 4 Active meloxicam (MOBIC) 15 MG tabletIndications :Arthritis Take 1 tablet (15 mg total) by mouth daily. 90 tablet 1 4 Active mesalamine EC (LIALDA) 1.2 g Tab EC tabletIndications :Irritable bowel syndrome, unspecified type TAKE 4 TABLETS(4.8 GRAMS) BY MOUTH DAILY WITH FOOD 360 tablet 1 4 Active omeprazole (PRILOSEC) 40 MG capsuleIndication s:Gastroesophagea l reflux disease without esophagitis TAKE 1 CAPSULE(40 MG) BY MOUTH DAILY 90 capsule 5 Active Active Problems Problem Noted Date Diagnosed Date Neck pain 04/03/2024 Pain of left upper extremity 04/03/2024 Bilateral knee pain 10/17/2023 Age-related osteoporosis wit hout current pathological fracture 05/04/2018 Closed stable burst fracture of eighth thoracic vertebra with routine healing 03/30/2018 Fracture of thoracic spine (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) 12/20/2016 Vitamin D deficiency 12/20/2016 Resolved Problems Problem Noted Date Diagnosed Date Resolved Date Wears glasses 12/20/2016 02/29/2020 Encounter for preventive health examination 11/23/2016 02/29/2020 Encounters Date Type Department Care Team Description 06/07/2024 1:43 PM HATCH BOSS - 06/07/2024 11:59 PM HATCH BOSS Hospital Encounter [facility] [address] [place] [phone] Haydee Fleming, Amanda Shepard, PT Shoulder Pain Discharge Disposition: Home or Self Care (Routine Discharge) 06/07/2024 Travel 06/05/2024 10:29 AM HATCH BOSS - 06/05/2024 11:59 PM HATCH BOSS Hospital Encounter [facility] [address] [place] [address] Haydee Fleming, Jennifer León, SENIOR DIRECTOR CREATIVE SERVICES Joint Pain/Shoulder region Discharge Disposition: Home or Self Care (Routine Discharge) 06/05/2024 Scan [facility] SRVCS Scanned, [facility] 06/05/2024 Travel 05/31/2024 4:15 PM HATCH BOSS - 05/31/2024 11:59 PM HATCH BOSS Hospital Encounter [facility] [address] [place] [phone] Haydee Fleming, Jennifer León, SENIOR DIRECTOR CREATIVE SERVICES Discharge Disposition: Home or Self Care (Routine Discharge) 05/31/2024 Travel 05/29/2024 10:29 AM HATCH BOSS - 05/29/2024 11:59 PM HATCH BOSS Hospital Encounter [facility] [address] [place] [phone] Haydee Fleming, Jennifer León, SENIOR DIRECTOR CREATIVE SERVICES Neck Pain Discharge Disposition: Home or Self Care (Routine Discharge) 05/29/2024 Travel 05/24/2024 3:15 PM HATCH BOSS - 05/24/2024 11:59 PM HATCH BOSS Hospital Encounter [facility] [address] [place] [phone] Haydee Fleming, Amanda Shepard, PT Shoulder Pain Discharge Disposition: Home or Self Care (Routine Discharge) 05/24/2024 Travel 05/22/2024 9:15 AM HATCH BOSS - 05/22/2024 11:59 PM HATCH BOSS Hospital Encounter [facility] [address] [place] [phone] Haydee Fleming, Geetha Zayas, SENIOR DIRECTOR CREATIVE SERVICES Shoulder Pain Discharge Disposition: Home or Self Care (Routine Discharge) 05/22/2024 Travel 05/18/2024 8:15 AM HATCH BOSS - 05/18/2024 11:59 PM HATCH BOSS [facility] [address] [place] [phone] [place], Helen Vera, SENIOR DIRECTOR CREATIVE SERVICES Neck Pain Discharge Disposition: Home or Self Care (Routine Discharge) 05/18/2024 Travel 05/15/2024 1:45 PM HATCH BOSS - 05/15/2024 11:59 PM HATCH BOSS Hospital Encounter [facility] [address] [place] [phone] Haydee Fleming, Amanda Shepard, PT Shoulder Pain Discharge Disposition: Home or Self Care (Routine Discharge) 05/15/2024 Travel 05/14/2024 Scan [facility] INFO SRVCS Scanned, [facility] Lab (SCAN) 05/10/2024 12:49 PM HATCH BOSS - 05/10/2024 11:59 PM HATCH BOSS Hospital Encounter [facility] [address] [place] [phone] Joi Michaels, PT Amanda Tobar, PT Neck Pain Discharge Disposition: Home or Self Care (Routine Discharge) 05/10/2024 Scan [facility] INFO SRVCS Scanned, [facility] Lab (SCAN) 05/10/2024 Travel 05/08/2024 9:15 AM HATCH BOSS - 05/08/2024 11:59 PM HATCH BOSS Hospital Encounter [facility] [address] [place] [address] Joi Michaels, PT Geetha Zarco, SENIOR DIRECTOR CREATIVE SERVICES Shoulder Pain Discharge Disposition: Home or Self Care (Routine Discharge) 05/08/2024 Travel from Last 3 Months Immunizations Name Administration Dates Next Due Fluzone High Dose (IIV, triv alent, 0.5mL) 04/12/2024 Fluzone High Dose - >Age 65 (Prefilled Syringe) 06/06/2023,05/03/2022,05/07/2021,2019 Influenza Adult (Generic) 05/03/2022 MODERNA COVID-19 (12+) MRNA, LNP-S, PF, 100 MCG/ 0.5 ML DOSE 08/29/2020,08/01/2020 MODERNA COVID-19 (FORTUNE TELLER KELVIN DARLYN), MRNA, LNP-S, PF, 50 MCG/ 0.25 ML DOSE 06/03/2021 Pneumococcal (Pneumovax 23) 04/22/2020 Shingrix 09/14/2021,06/01/2021 Zoster (Zostavax) [address] Unt/0.65Ml 11/18/2014 Family History Medical History Relation Comments Heart Disease Father Hypertension Father Cancer Mother colon Autoimmune Disease Sister cll Sister Breast Cancer Neg Hx Relation Status Comments Father Mother Alive Sister Alive Social History Tobacco Use Types Packs/Day Years Used Date Smoking Tobacco: Former Cigarettes Q uit: 2006 Passive Smoke Exposure: Past Smokeless Tobacco: Never Tobacco Cessation:Counseling Given: No Comments:former user tobacco - quit 2006 Alcohol Use Standard Drinks/Week Comments Yes 0 (1 standard drink = 0.6 oz pur e alcohol) social (2 per week) PHQ-2 Answer Date Recorded Patient Health Questionnaire-2 Score 0 01/13/2024 Comments No Sex and Gender Information Value [...] Sign Reading Time Taken Comments Blood Pressure 120/74 05/01/2024 12:45 PM HATCH BOSS Pulse 80 05/01/2024 12:45 PM HATCH BOSS Temperature 35.9 C (96.7 F) 05/01/2024 12:45 PM HATCH BOSS Respiratory Rate 20 05/01/2024 12:45 PM HATCH BOSS Oxygen Saturation 97% 04/12/2024 9:04 AM CDT Inhaled Oxygen Concentration - - Weight 67.6 kg (149 lb) 05/01/2024 12:45 PM HATCH BOSS Height 157.5 cm (5' 2 ) 05/01/2024 12:45 PM HATCH BOSS Body Mass Index 27.25 05/01/2024 12:45 PM HATCH BOSS Plan of Treatment Health Maintenance Due Date Last Done Comments Hepatitis C 1971 DTaP, Tdap and Td Vaccines (1 - Tdap) 1972 Annual Medicare Wellness Visit 2018 Pneumococcal Vaccine: 65+ Years (2 of 2 - PCV) 04/22/2021 04/22/2020 COVID-19 Vaccine (4 - season) 2024 06/03/2021, 08/29/2020, 08/01/2020 PHQ-2 (Physician [place]) 06/20/2024 01/13/2024 Mammogram Screening 09/25/2025 09/26/2023, 2 EGD-Tracey's Surveillance 05/31/2026 05/31/2023 RSV Immunization or 60+ Years (1 - 1-dose 75+ series) 2028 Colorectal Cancer Screening Colonoscopy (10 Years) 05/31/2033 05/31/2023, 11/28/2019, 06/29/2017 Zoster Vaccines Completed 09/14/2021, 05/20, 11/18/2014 Dexa Scan (General) Completed 12/28/2022, 12/08/2021, 12/08/2021, Additional history exists Influenza Adult Completed 04/12/2024, 05/20, 05/03/2022, Additional history exists Meningococcal B Vaccine Aged Out No l onger eligible based on patient's age to complete this topic Meningococcal Vaccine Aged Out No sammie lacey eligible based on patient's age to complete this topic RSV Immunizations Under 20 Months Aged Out No longer eligible based on patient's age to complete this topic Procedures Procedure Name Priority Date/Time Associated Diagnosis Comments OUTSIDE LAB (SCAN ORDER) 05/14/2024 OUTSIDE LAB (SCAN ORDER) 05/14/2024 OUTSIDE LAB (SCAN ORDER) 05/14/2024 OUTSIDE LAB (SCAN ORDER) 05/14/2024 OUTSIDE LAB (SCAN ORDER) 05/14/2024 OUTSIDE LAB (SCAN ORDER) 05/10/2024 OUTSIDE LAB (SCAN ORDER) 05/10/2024 OUTSIDE LAB (SCAN ORDER) 05/10/2024 MG SCREENING W SJ FELICIA DIGI Routine 09/26/2023 9:50 AM CDT Encounter for screening mammogram for breast cancer EGD GENERIC (SCAN ORDER) 05/31/2023 COLONOSCOPY GENERIC (SCAN ORDER) 05/31/2023 BONE DENSITY GENERIC (SCAN ORDER) 12/08/2021 from Last 3 Months or Most Recently Relevant to Health Maintenance Results * OUTSIDE LAB (SCAN ORDER) (05/14/2024) Only the most recent of8 resultswithin the time period is included. 05/14/2024 us [facility] Scanned SCANNING Final Resu lt * MG SCREENING W SJ FELICIA DIGI (09/26/2023 9:50 AM CDT) Anatomical Region Laterality Modality Breast Bilateral Mammography 09/30/2023 6:47 AM CDT Impressions 09/30/2023 6:48 AM CDT ===== IMPRESSION: ===== 1. Stable mammographic appearance with no new findings to suggest malignancy in either breast. Assessment: ACR BI-RADS 2 - BENIGN FINDING(S) Recommendation: 1:Routine Screening Bilateral Comments: Ordered By: BAIRON BECKHAM Interpreted By: Scott Mckeon MD, 09/30/2023 6:47 AM Narrative 09/30/2023 6:48 AM CDT Examination: Digital bilateral screening mammogram with 3D Tomosynthesis Exam Date/Time: 09/26/2023 8:53 AM Reason For Exam: SCREENING FOR BREAST CANCER Prior benign core biopsy at unknown date and on unknown side. No personal or family history history of breast cancer. No current complaints. Comparison: Mammograms from 09/02/2021 06/07/2019 Technique: Digital screening mammography of both breasts was performed in addition to 3-D Tomosynthesis technique. This study was read with the assistance of a computer-aided detection system. Tissue density: There are scattered areas of fibroglandular density. Findings: Benign rounded calcifications again seen. Overall parenchymal pattern unchanged from the prior studies. There is no new focal asymmetry, dominant mass lesion, area of skin thickening, or cluster of suspicious appearing calcifications in either breast to suggest malignancy. Bairon Beckham MD MAMMO Final Resul t * EGD GENERIC (05/31/2023) 05/31/2023 [facility] Scanned SCANNING Final Resu lt * COLONOSCOPY GENERIC (05/31/2023) 05/31/2023 [facility] Scanned SCANNING Final Resu lt * BONE DENSITY GENERIC (12/08/2021) Anatomical Region Laterality Modality Other 12/08/2021 Narrative 12/08/2021 Ordered by an unspecified provider. Documents Scanned SCANNING Final Result from Last 3 Months or Most Recently Relevant to Health Maintenance Insurance [facility]IC[facility] Advance Directives Documents on File Type Date Recorded Patient Formula Room Worker Expl anation Power of Machine Burrer 03/08/2023 POWER OF A TTY Care Teams Raimann Machine Operator Relationship Specialty Start [place] [address] [place] [address] PCP - General FAMILY PRACTICE 05/10/18
[2024-08-03 11:27] LABS: Hematocrit 40.3 % (37.0-47.0); Mean Corpuscular HGB Conc 32.3 g/dl (32-36); Mean Corpuscular Hemoglobin 29.8 pg (26-34); Mean Corpuscular Volume 92.4 fl (80-100); Mean Platelet Volume 9.2 fl (7.4-10.4); Platelet Count Result 382 k/mm3 (150-375); Red Blood Count 4.36 M/mm3 (4.2-5.4); Red Cell Distribution Width 13.3 % (11.5-14.5); White Blood Count 7.3 K/mm3 (4.5-10.0)
[2024-08-03 11:39] LABS: Alanine Aminotransferase 21 U/L (6-35); Albumin Level 4.2 g/dL (3.5-5.1); Alkaline Phosphatase 52 U/L (38-126); Anion Gap 8 mmol/L (4-12); Aspartate Amino Transferase 21 U/L (14-36); Bilirubin,Total 0.7 mg/dL (0.2-1.3); Blood Urea Nitrogen 13 mg/dL (7-17); CRP < 0.5 mg/dL (<1.0); Calcium 9.2 mg/dL (8.4-10.2); Carbon Dioxide 29 mmol/L (22-30); Chloride 103 mmol/L (98-107); Estimated Glomerular Filt Rate > 60; Glucose 88 mg/dL (65-110); Potassium 3.6 mmol/L (3.4-5.0); Sodium 140 mmol/L (137-145)
[2024-08-03 13:06] LABS: Erythrocyte Sedimentation Rate 116 mm/hr (0-20)
[2024-08-08 16:43] LABS: Calprotectin, Stool 1010 mcg/g
== END 2024-08-03 10:21 | disposition home or self-care (01) ==
LOC: ANHLAB 10:24
PROVIDERS: PCP Family Medicine; Visit Provider Nurse Practitioner Family
DX: K51.90 Ulcerative colitis, unspecified, without complications (principal)
CPT/HCPCS: 36415; 80053; 83993; 85027; 85652; 86140

== ENCOUNTER 2024-12-04 10:55 | Outpatient (CLI) | payer MEDICARE, SELFPAY ==
--- OUTSIDE RECORDS SUMMARY | 2024-12-04 12:02 | XMS_ITS | Referral Summary ---
Author Organization [facility] Address [address] [place] [address] Care Team Providers Care Loading Machine Tool Setter Name Role Phone Robbin Beckham MD Primary Care Provider [phone] Amada Barahona NP Unavailable [phone] Haydee Fleming Unavailable [phone] Encounters Date Type Department Care Team Description 11/21/[address] Office Building [address] [place] [address] Ivanna Yip MD Treatment Plan Update (New Evenity ) 11/21/2024 2:00 PM CDT Office Visit [address] [place] [address] Ivanna Yip MD Age-related osteoporosis with current pathological fracture with routine healing, subsequent encounter (Primary Dx) 10/28/2024 Results Follow-Up [address] [place] [address] Ivanna Yip MD XR Spine Lumbar 2 or 3 Views 10/25/2024 Telephone [facility] Orthopaedic Surgery [address] [facility] Medicine 12th [place] [address] [place] [address] Delfina Fraga RMA 10/22/2024 10:15 AM CDT - 10/22/2024 11:59 PM CDT Hospital Encounter [facility] [address] [address] Compression fracture of T12 vertebra with routine healing, subsequent encounter Discharge Disposition: Discharge to home or self care 10/22/2024 8:45 AM CDT - 10/22/2024 11:59 PM CDT Hospital Encounter [facility] [address] [place] [address] Right shoulder pain, unspecified chronicity Discharge Disposition: Discharge to home or self care 10/22/2024 8:30 AM CDT Office Visit [facility] Orthopaedic Surgery [address] [facility] 2[address] [place] [address] Benjamin Mora PA Tendinitis of right rotator cuff (Primary Dx); Right shoulder pain, unspecified chronicity from Last 3 Months Allergies No known [...] Active Additional Information Patient not taking.Reported on 10/22/2024 potassium chloride ER (KLOR-CON) 20 mEq CR tablet Take 1 tablet (20 mEq total) by mouth daily 9 Active calcium carbonate (CALCIUM 600 ORAL) Take by mouth 600MG SOME DAYS Active cholecalciferol (VITAMIN D-3) 400 unit capsule Active dicyclomine (BENTYL) 10 mg capsule Take 1 capsule (10 mg total) by mouth 4 times daily Active meloxicam (MOBIC) 15 mg tablet 4 Active predniSONE (DELTASONE) 5 mg tablet 4 Active Active Problems Problem Noted Date Diagnosed Date Age-related osteoporosis wit hout current pathological fracture 05/04/2018 Closed stable burst fracture of eighth thoracic vertebra with routine healing 03/30/2018 Social History Tobacco Use Types Packs/Day Years Used Date Smoking Tobacco: Former Cigarettes Q uit: 2006 Smokeless Tobacco: Never Tobacco Cessation:Counseling Given: Not Answered Alcohol Use Standard Drinks/Week Comments Defer 0 (1 standard drink = 0.6 oz pur e alcohol) Comments Unknown Sex and Gender Information Value Date Recorded Sex Assigned at Not on file Legal Sex Female 3:39 AM GLOVE CUFFER Gender Identity Not on file Sexual Orientation Not on file 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 file Not on file Not on file Last Filed Vital Signs Vital Sign Reading Time Taken Comments Blood Pressure - - Pulse - - Temperature - - Respiratory Rate - - Oxygen Saturation - - Inhaled Oxygen Concentration - - Weight 68.7 kg (151 lb 8 oz) 11/21/2024 2:08 PM CDT Height 156 cm (5' 1.4) 11/21/2024 2:08 PM CDT Body Mass Index 28.25 11/21/2024 2:08 PM CDT Plan of Treatment Not on file Procedures Procedure Name Priority Date/Time Associated Diagnosis Comments XR SPINE THORACIC 2 VIEWS Schedule Routine, Read Routine (OP Routine) 10/22/2024 10:29 AM CDT Compression fracture of T12 vertebra with routine healing, subsequent encounter XR SPINE LUMBAR 2 OR 3 VIEWS Schedule Routine, Read Routine (OP Routine) 10/22/2024 10:29 AM CDT Compression fracture of T12 vertebra with routine healing, subsequent encounter XR SHOULDER RIGHT 2 OR MORE VIEWS Schedule Routine, Read Routine (OP Routine) 10/22/2024 8:53 AM CDT Right shoulder pain, unspecified chronicity TN ARTHROCENTESIS ASPIR&/INJ MAJOR JT/BURSA W/O US Routine 10/22/2024 8:30 AM CDT Tendinitis of right rotator cuff DEXA TBS AXIAL SKELETON BONE DENSITY 1 OR MORE SITES Schedule Routine, Read Routine (OP Routine) 08/14/2024 11:21 AM GLOVE CUFFER Age-related osteoporosis without current pathological fracture from Last 3 Months or Most Recently Relevant to Health Maintenance Results * XR Spine Lumbar 2 or 3 Views (10/22/2024 10:29 AM CDT) Anatomical Region Laterality Modality Spine N/A Computed Radiogr aphy 10/22/2024 11:2 0 AM CDT Impressions 10/22/2024 11:20 AM CDT 1. Age-indeterminate L4 compression fracture deformities mild anterior column height loss appears new compared to 2018. 2. Chronic T3, T4, and T8 compression fracture deformities appear unchanged. No new compression fractures. 3. Grade 1 anterolisthesis of L4 on L5, similar to prior. Electronically signed by: Donovan Steele D.O. Narrative 10/22/2024 11:20 AM CDT EXAMINATION: XR SPINE LUMBAR 2 OR 3 VIEWS, XR SPINE THORACIC 2 VIEWS HISTORY: Compression fracture FINDINGS: Comparison made with 03/30/2018 and 02/03/2018 radiographs. Unchanged mild anterior wedging of T3 and T4 and moderate anterior wedging of T8 consistent with chronic compression fracture deformities. Question L4 compression fracture deformities mild anterior column height loss. No spondylolisthesis. Multilevel moderate degenerative disc disease throughout the thoracic spine. Mild to moderate multilevel lumbar degenerative disc disease most pronounced and moderate at L4-L5. Grade 1 anterolisthesis of L4 on L5 is unchanged. Mild rotatory dextroscoliosis of the upper lumbar spine, similar to prior. Multilevel lower lumbar facet arthropathy and abutment of the lumbar spinous processes. Procedure Note Donovan Steele, - 10/22/2024 EXAMINATION: XR SPINE LUMBAR 2 OR 3 VIEWS, XR SPINE THORACIC 2 VIEWS HISTORY: Compression fracture FINDINGS: Comparison made with 03/30/2018 and 02/03/2018 radiographs. Unchanged mild anterior wedging of T3 and T4 and moderate anterior wedging of T8 consistent with chronic compression fracture deformities. Question L4 compression fracture deformities mild anterior column height loss. No spondylolisthesis. Multilevel moderate degenerative disc disease throughout the thoracic spine. Mild to moderate multilevel lumbar degenerative disc disease most pronounced and moderate at L4-L5. Grade 1 anterolisthesis of L4 on L5 is unchanged. Mild rotatory dextroscoliosis of the upper lumbar spine, similar to prior. Multilevel lower lumbar facet arthropathy and abutment of the lumbar spinous processes. IMPRESSION: 1. Age-indeterminate L4 compression fracture deformities mild anterior column height loss appears new compared to 2018. 2. Chronic T3, T4, and T8 compression fracture deformities appear unchanged. No new compression fractures. 3. Grade 1 anterolisthesis of L4 on L5, similar to prior. Electronically signed by: Donovan Steele D.O. Ivanna Yip MD IM XR PROCEDURES Final Resul t * XR Spine Thoracic 2 Views (10/22/2024 10:29 AM CDT) Anatomical Region Laterality Modality Spine N/A Computed Radiogr aphy 10/22/2024 11:2 0 AM CDT Impressions 10/22/2024 11:20 AM CDT 1. Age-indeterminate L4 compression fracture deformities mild anterior column height loss appears new compared to 2018. 2. Chronic T3, T4, and T8 compression fracture deformities appear unchanged. No new compression fractures. 3. Grade 1 anterolisthesis of L4 on L5, similar to prior. Electronically signed by: Donovan Steele D.O. Narrative 10/22/2024 11:20 AM CDT EXAMINATION: XR SPINE LUMBAR 2 OR 3 VIEWS, XR SPINE THORACIC 2 VIEWS HISTORY: Compression fracture FINDINGS: Comparison made with 03/30/2018 and 02/03/2018 radiographs. Unchanged mild anterior wedging of T3 and T4 and moderate anterior wedging of T8 consistent with chronic compression fracture deformities. Question L4 compression fracture deformities mild anterior column height loss. No spondylolisthesis. Multilevel moderate degenerative disc disease throughout the thoracic spine. Mild to moderate multilevel lumbar degenerative disc disease most pronounced and moderate at L4-L5. Grade 1 anterolisthesis of L4 on L5 is unchanged. Mild rotatory dextroscoliosis of the upper lumbar spine, similar to prior. Multilevel lower lumbar facet arthropathy and abutment of the lumbar spinous processes. Procedure Note Donovan Steele, DO - 10/22/2024 EXAMINATION: XR SPINE LUMBAR 2 OR 3 VIEWS, XR SPINE THORACIC 2 VIEWS HISTORY: Compression fracture FINDINGS: Comparison made with 03/30/2018 and 02/03/2018 radiographs. Unchanged mild anterior wedging of T3 and T4 and moderate anterior wedging of T8 consistent with chronic compression fracture deformities. Question L4 compression fracture deformities mild anterior column height loss. No spondylolisthesis. Multilevel moderate degenerative disc disease throughout the thoracic spine. Mild to moderate multilevel lumbar degenerative disc disease most pronounced and moderate at L4-L5. Grade 1 anterolisthesis of L4 on L5 is unchanged. Mild rotatory dextroscoliosis of the upper lumbar spine, similar to prior. Multilevel lower lumbar facet arthropathy and abutment of the lumbar spinous processes. IMPRESSION: 1. Age-indeterminate L4 compression fracture deformities mild anterior column height loss appears new compared to 2018. 2. Chronic T3, T4, and T8 compression fracture deformities appear unchanged. No new compression fractures. 3. Grade 1 anterolisthesis of L4 on L5, similar to prior. Electronically signed by: Donovan Steele D.O. Ivanna Yip MD IMG XR PROCEDURES Final Resul t * XR Shoulder Right 2 or More Views (10/22/2024 8:53 AM CDT) Anatomical Region Laterality Modality Upper Extremities, Shoulder Right Comp uted Radiography 10/22/2024 9:06 AM CDT Impressions 10/22/2024 9:06 AM CDT 1. Moderate right acromioclavicular joint osteoarthritis with a large subacromial spur. 2. Mild right glenohumeral joint osteoarthritis. Electronically signed by: Vivek Armas M.D. Narrative 10/22/2024 9:06 AM CDT EXAMINATION: XR SHOULDER RIGHT 2 OR MORE VIEWS HISTORY: right shoulder pain COMPARISON: No comparison right shoulder radiographs. FINDINGS: No evidence of acute fracture or dislocation. There is moderate right acromioclavicular and mild right glenohumeral joint osteoarthritis with heterotopic ossification along the inferior aspect of the glenoid. Large subacromial spur. Partially imaged multilevel degenerative disc and joint disease in the cervical and thoracic spine. Chronic mid thoracic compression fracture deformity is noted, more completely evaluated in 2018 and incompletely imaged. Procedure Note Vivek Armas MD - 10/22/2024 EXAMINATION: XR SHOULDER RIGHT 2 OR MORE VIEWS HISTORY: right shoulder pain COMPARISON: No comparison right shoulder radiographs. FINDINGS: No evidence of acute fracture or dislocation. There is moderate right acromioclavicular and mild right glenohumeral joint osteoarthritis with heterotopic ossification along the inferior aspect of the glenoid. Large subacromial spur. Partially imaged multilevel degenerative disc and joint disease in the cervical and thoracic spine. Chronic mid thoracic compression fracture deformity is noted, more completely evaluated in 2018 and incompletely imaged. IMPRESSION: 1. Moderate right acromioclavicular joint osteoarthritis with a large subacromial spur. 2. Mild right glenohumeral joint osteoarthritis. Electronically signed by: Vivek Armas M.D. Benjamin PEDERSEN IMG XR PROCEDURES Final Result * TN ARTHROCENTESIS ASPIR&/INJ MAJOR JT/BURSA W/O US (10/22/2024 8:30 AM CDT) Narrative Benjamin Mora PA - 10/22/2024 8:30 AM CDT Benjamin Mora PA 10/22/2024 9:27 AM Large Joint Injection: R subacromial bursa Performed by: Benjamin Mora PA Authorized by: Benjamin Mora PA Large Joint Injection/Aspiration: Consent Given by: Patient Timeout: prior to procedure the correct patient, procedure, and site was verified Verbal consent obtained: Yes Supporting Documentation: Indications: Pain Procedure Details: Location: Shoulder Site: R subacromial bursa Prep: patient was prepped using a clean technique (Betadine and alcohol) Needle Size: 22 G Approach: Posterior Ultrasound guided: No Fluroscopic guidance: No Medications: 40 mg methylPREDNISolone acetate 40 mg/mL; 4 mL BUPivacaine HCl 0.25 % (2.5 mg/mL) Patient tolerance: Patient tolerated the procedure well with no immediate complications us Benjamin PEDERSEN IN CLINIC/BEDSIDE ORDERABLES Fi nal Result * Dexa TBS Axial Skeleton Bone Density 1 or more sites (08/14/2024 11:21 AM GLOVE CUFFER) Anatomical Region Laterality Modality Wrist, Body N/A Radiographic Anai ging Narrative 08/14/2024 8:41 PM GLOVE CUFFER Patient Name: Oscar Mckeon Date of : 1955 Date of scan: 08/14/2024 Bone mineral density was performed on a [employer] Discovery Densitometer. Based on machine cross-calibration and precision studies the least significant changes of this densitometer is 0.024 g/cm2 at the spine, 0.020 g/cm2 at the total proximal femur, and 0.014g/cm2 at the forearm. HISTORY: This is a 69 y.o. postmenopausal female with a history of osteoporosis, ulcerative colitis, and vitamin D deficiency. She reports that she quit smoking about 18 years ago. She has never used smokeless tobacco. Currently on treatment with calcium and vitamin D, previously treated with zoledronic acid (Reclast) and hormone replacement therapy, and current complaint of arm pain, back pain, neck pain, and leg pain. INDICATIONS: Menopause status, history of prior vertebral fracture, vitamin D deficiency, and history of osteoporosis. FINDINGS: BONE MINERAL DENSITY OF THE LUMBAR SPINE Bone Mineral Density (BMD) of the lumbar spine was measured from L1-L3 and the average density was calculated to be 0.975 gm/cm2. This corresponds to a T-score (standard deviations from the mean of young adults) of -0.4. When compared to the previous study of 12/28/2022 there has been a 0.085 gm/cm (9.5%) increase in bone density that is considered significant. BONE MINERAL DENSITY OF THE PROXIMAL FEMUR Bone Mineral Density (BMD) of the left hip total was found to be 0.814 gm/cm2. This corresponds to a T-score standard deviations from the mean of young adults of -1.0. Femoral neck is 0.681 gm/cm2 with a T-score (standard deviations from the mean of young adults) of -1.5. When compared to the previous study of 12/28/2022 there has been a 0.047 gm/cm (6.1%) increase in bone density that is considered significant. SUMMARY: Bone mineral density shows evidence of low bone mass at the proximal femur and moderately increased fracture risk (Osteopenia). There has been a significant increase in bone density since previous measurement. L4 excluded from bone mineral density analysis of the lumbar spine due to bone density being more than 1 standard deviation discrepant relative to one adjacent vertebra. Clinical correlation is recommended. The lumbar spine Trabecular Bone Score is 1.261 which suggests partially degraded bone microarchitecture compared to the general [...] bone mineral density scan were prepared by Gail Trammell) [employer] who is accredited by the International Society of Clinical Densitometry. The overall patient assessment and scan interpretation were performed by Ivanna Yip M.D. who is certified by the International Society of Clinical Densitometry. [id number] Ivanna Yip MD IMG DXA PROCEDURES Final Resu lt from Last 3 Months or Most Recently Relevant to Health Maintenance Insurance [employer] [facility] OPEN ACCESS MEDICARE [facility] Address: [facility] [address] [place] [address] [facility] MEDICARE AAR MEDICARE [facility] Care Teams Loading Machine Tool Setter Relationship Specialty [place] [address] [place] [address] PCP - General 01/06/18 [place] [address] [facility] [address] [place] [address] Family Practice 01/06/18 [place] [address] [facility] [address] [place] [address] Physician Graphic Design Manager Physician Graphic Design Manager 05/08/24
--- OUTSIDE RECORDS SUMMARY | 2024-12-04 12:03 | XMS_ITS | Encounter Summary ---
Author Organization [facility] Address [address] [place] [address] Phone Care Team Providers Care Information Services Assistant Name Role Phone Robbin Beckham MD Primary Care Provider [phone] Amada Barahona NP Unavailable [phone] Haydee Fleming Unavailable [phone] Encounter Details Date Type Department Care Team (Late st Contact Info) Description 10/28/2024 Results Follow-Up [facility] [address] 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 Hi Rosario I reviewed your x-rays. There is a new fracture at the level of L4. This was not present on your prior x-ray in 2018. We discussed evenity during your appointment. If you are open to discuss this medication, I will have a follow-up visit with you and then if you agree we will start it. Please let me know if you have any questions. documented in this encounter Plan of Treatment Not on file documented as of this encounter Visit Diagnoses Not on filedocumented in this encounter Care Teams Information Services Assistant Relationship Specialty [place] [address] [place] [address] PCP - General 01/06/18 [place] [address] [place] [address] Family Practice 01/06/18 [place] [address] [place] [address] Physician School Inspector Physician School Inspector 05/08/24 documented as of this encounter
--- OUTSIDE RECORDS SUMMARY | 2024-12-04 12:03 | XMS_ITS | Clinical Summary ---
Author Organization [facility] Address [facility] [place] [address] Care Team Providers Care Epic Radiant Analyst Name Role Phone Bairon Beckham MD Primary Care Provider Allergies No known active allergies Medications calcium carbonate 1250 (500 Ca) MG tablet Take 1 tablet (1,250 mg total) by mouth daily. Active Cholecalciferol (VITAMIN D) 50 MCG (1999 UT) Tab Active dicyclomine (BENTYL) 10 MG capsule Take 1 capsule (10 mg total) by mouth 4 (four) times daily before meals and nightly. Active meloxicam (MOBIC) 15 MG tabletIndication s:Arthritis Take 1 tablet (15 mg total) by mouth daily. 90 tablet 1 4 Active Additional Information Patient not taking.Reported on 10/12/2024 mesalamine EC (LIALDA) 1.2 g Tab EC tabletIndication s:Irritable bowel syndrome, unspecified type TAKE 4 TABLETS(4.8 GRAMS) BY MOUTH DAILY WITH FOOD 360 tablet 1 4 Active omeprazole (PRILOSEC) 40 MG capsuleIndicatio ns:Gastroesophag eal reflux disease without esophagitis Take 1 capsule (40 mg total) by mouth daily. 90 capsule 5 Active ENTYVIO 300 MG injection 5 Active amLODIPine (NORVASC) 10 MG tabletIndication s:Essential hypertension Take 1 tablet (10 mg total) by mouth daily. 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 GERD (gastroesophageal reflux disease) 7 Hyperlipidemia 12/20/2016 Hypertension 12/20/2016 Irritable bowel 12/20/2016 Musculoskeletal pain 12/20/2016 Ulcerative colitis ([facility]) 12/20/2016 Vitamin D deficiency 12/20/2016 Resolved Problems Problem Noted Date Diagnosed Date Resolved Date Wears glasses 12/20/2016 02/29/2020 Encounter for preventive health examination 11/23/2016 02/29/2020 Encounters Date Type Department Care Team Description 11/27/2024 10:24 AM CDT - 11/27/2024 11:59 PM CDT Hospital Encounter [address] [address] Bairon Beckham MD Discharge Disposition: Home or Self Care (Routine Discharge) 11/27/2024 Travel 10/18/2024 11:15 AM CDT - 10/18/2024 11:59 PM CDT Hospital Encounter [facility] [address] [place] [address] Joi Michaels, PT Solitario Serna MD Shoulder Pain (RECERT/RE-EVAL) Discharge Disposition: Home or Self Care (Routine Discharge) 10/18/2024 Travel 10/16/2024 8:41 AM CDT - 10/16/2024 11:59 PM CDT Hospital Encounter [facility] [address] [place] [address] Joi Michaels, PT Solitario Serna MD Shoulder Pain Discharge Disposition: Home or Self Care (Routine Discharge) 10/16/2024 Travel 10/15/2024 Scan [facility] INFO SRVCS Scanned, [facility] 10/12/2024 12:27 PM CDT - 10/12/2024 11:59 PM CDT Hospital Encounter [facility] [address] [place] [address] Bairon Beckham MD Discharge Disposition: Home or Self Care (Routine Discharge) 10/12/2024 10:49 AM CDT - 10/12/2024 12:26 PM CDT Hospital Encounter [facility] [address] [place] [address] Joi Michaels, PT Solitario Serna MD Shoulder Pain Discharge Disposition: Home or Self Care (Routine Discharge) 10/12/2024 10:20 AM CDT Laboratory Only [address] [phone] Bairon Beckham MD 10/12/2024 9:40 AM CDT Office Visit [address] [phone] Bairon Beckham MD Follow Up 10/12/2024 Results Follow-Up [address] [phone] Bairon Beckham MD LIPID PANEL, MG SCREENING W SJ FELICIA DIGI 10/12/2024 Travel 10/04/2024 8:55 AM CDT - 10/04/2024 11:59 PM CDT Hospital Encounter [facility] [address] [place] [address] Solitario Serna MD Arentsen, Anita A, PTA Joint Pain/Shoulder region Discharge Disposition: Home or Self Care (Routine Discharge) 10/04/2024 Travel 09/28/2024 8:14 AM CDT - 09/28/2024 11:59 PM CDT Hospital Encounter [facility] [address] [place] [address] Joi Michaels, PT Solitario Serna MD Shoulder Pain Discharge Disposition: Home or Self Care (Routine Discharge) 09/28/2024 Travel 09/20/2024 10:30 AM CDT - 09/20/2024 11:59 PM CDT Hospital Encounter [facility] [address] [place] [address] Joi Michaels, PT Solitario Serna MD Shoulder Pain Discharge Disposition: Home or Self Care (Routine Discharge) 09/20/2024 Travel 09/18/2024 9:52 AM CDT - 09/18/2024 11:59 PM CDT Hospital Encounter [facility] [address] [place] [address] Joi Michaels, PT Haydee Fleming, SLAVA Shoulder Pain (Initial Evaluation ) Discharge Disposition: Home or Self Care (Routine Discharge) 09/18/2024 Travel from Last 3 Months Immunizations Immunization Administration Dates Next Due Fluzone High Dose (IIV, triv alent, 0.5mL) 04/12/2024 Fluzone High Dose - >Age 65 (Prefilled Syringe) 06/06/2023,05/03/2022,05/07/2021,2019 Influenza Adult (Generic) 05/03/2022 MODERNA COVID-19 (12+) MRNA, LNP-S, PF, 100 MCG/ 0.5 ML DOSE 08/29/2020,08/01/2020 MODERNA COVID-19 (CENTRAL OFFICE OPERATOR KELVIN DARLYN), MRNA, LNP-S, PF, 50 MCG/ 0.25 ML DOSE 06/03/2021 Pneumococcal (Pneumovax 23) 04/22/2020 Shingrix 09/14/2021,06/01/2021 Zoster (Zostavax) 81303 Unt/0.65Ml 11/18/2014 Family History Medical History Relation Comments Heart Disease Father Hypertension Father Atrial fibrillation Mother Cancer Mother colon Autoimmune Disease Sister cll [...] Date Recorded Patient Health Questionnaire-2 Score 0 10/12/2024 Comments No Sex and Gender Information Value [...] Sign Reading Time Taken Comments Blood Pressure 133/87 10/12/2024 9:49 AM CDT Pulse 75 10/12/2024 9:42 AM CDT Temperature 36.8 C (98.3 F) 10/12/2024 9:42 AM CDT Respiratory Rate 16 10/12/2024 9:42 AM CDT Oxygen Saturation 96% 10/12/2024 9:42 AM CDT Inhaled Oxygen Concentration - - Weight 68 kg (150 lb) 10/12/2024 9:42 AM CDT Height 157.5 cm (5' 2) 10/12/2024 9:42 AM CDT Body Mass Index 27.44 10/12/2024 9:42 AM CDT Plan of Treatment Health Maintenance Due Date Last Done Comments Hepatitis C 1971 DTaP, Tdap and Td Vaccines (1 - Tdap) 1972 Annual Medicare Wellness Visit 2018 Pneumococcal Vaccine: 50+ Years (2 of 2 - PCV) 04/22/2021 04/22/2020 COVID-19 Vaccine ( - season) 2024 06/03/2021, 08/29/2020, 08/01/2020 EGD-Tracey's Surveillance 05/31/2026 05/31/2023 Mammogram Screening 11/27/2026 11/27/2024, 09/26/2023, 09/02/2021 RSV Immunization or 60+ Years (1 - 1-dose 75+ series) 2028 Colorectal Cancer Screening Colonoscopy (10 Years) 05/31/2033 05/31/2023, 11/28/2019, 06/29/2017 Zoster Vaccines Completed 09/14/2021, 05/20, 11/18/2014 Dexa Scan (General) Completed 08/14/2024, 12/28/2022, 12/08/2021, Additional history exists PHQ-2 (Physician [place]) Completed 10/12/2024 Meningococcal B Vaccine Aged Out No l onger eligible based on patient's age to complete this topic Meningococcal Vaccine Aged Out No sammie lacey eligible based on patient's age to complete this topic RSV Immunizations Under 20 Months Aged Out No longer eligible based on patient's age to complete this topic Procedures Procedure Name Priority Date/Time Associated Diagnosis Comments MG SCREENING W SJ FELICIA DIGI Routine 11/27/2024 11:03 AM CDT Encounter for screening mammogram for breast cancer COLLECTION VENOUS BLOOD VENIPUNCTURE Routine 10/12/2024 10:22 AM CDT Hyperlipidemia, unspecified hyperlipidemia type LIPID PANEL Routine 10/12/2024 10:17 AM CDT Hyperlipidemia, unspecified hyperlipidemia type EGD GENERIC (SCAN ORDER) 05/31/2023 COLONOSCOPY GENERIC (SCAN ORDER) 05/31/2023 BONE DENSITY GENERIC (SCAN ORDER) 12/08/2021 from Last 3 Months or Most Recently Relevant to Health Maintenance Results * MG SCREENING W SJ FELICIA DIGI (11/27/2024 11:03 AM CDT) Anatomical Region Laterality Modality Breast Bilateral Mammography 11/28/2024 4:56 PM CDT Impressions 11/28/2024 5:04 PM CDT ===== IMPRESSION: ===== 1. Stable mammographic appearance with no new findings to suggest malignancy in either breast. Assessment: ACR BI-RADS 1 - NEGATIVE Recommendation: 1:Routine Screening Bilateral Comments: Ordered By: BAIRON BECKHAM Interpreted By: Uday Karimi, 11/28/2024 4:56 PM Narrative 11/28/2024 5:04 PM CDT [facility] [address] [place] [address] EXAMINATION: Digital bilateral screening mammogram with 3-D tomosynthesis EXAM DATE/TIME: 11/27/2024 10:26 AM REASON FOR EXAM: screening Biopsy in the past. Side unknown. COMPARISON: 09/02/2021.. September 26, 2023 Technique: Digital screening mammography of both breasts was performed in addition to 3-D Tomosynthesis technique. This study was read with the assistance of a computer-aided detection system. Tissue density: There are scattered areas of fibroglandular density. Findings: There is no new focal asymmetry, dominant mass lesion, area of skin thickening, or cluster of suspicious appearing calcifications in either breast to suggest malignancy.. Stable mild scar formation from probable biopsy in central right breast Limited visualization of the axilla due to difficulty in patient positioning. Shoulder problems. us Bairon Beckham MD MAMMO Final Resul t * (ABNORMAL) LIPID PANEL (10/12/2024 10:17 AM CDT) CHOLESTEROL 201(H) <200.0 MG/DL 10/12/2024 12:44 PM CDT [facility] TRIGLYCERIDES 82 <150 MG/DL 10/12/2024 12:44 PM CDT [facility] HDL 61 >40.0 MG/DL 10/12/2024 12:44 PM CDT [facility] LDL (CALCULATED) 124(H) <100 MG/DL 10/12/2024 12:44 PM CDT [facility] NON HDL CHOLESTEROL 140(H) <130 MG/DL 10/12/2024 12:44 PM CDT [facility] CHOL/HDL RATIO 3.3 0.0 - 4.5 10/12/2024 12:44 PM CDT [facility] VLDL CALCULATION 16 5 - 55 MG/DL 10/12/2024 12:44 PM CDT [facility] LIPID INTERPRETATION 10/12/2024 12:44 PM CDT [facility] Comment: NIH CONCENSUS REPORT RECOMMENDATIONS: ADULT CHILD LOW RISK: CHOLESTEROL <200 <170 TRIGLYCERIDE <150 --- HDL >=60 --- LDL <100 <110 BORDERLINE: CHOLESTEROL 200-239 170-199 TRIGLYCERIDE 150-199 --- HDL 40-59 --- LDL 100-159 110-129 HIGH RISK: CHOLESTEROL >=240 >=200 TRIGLYCERIDE >=200 --- HDL <40 --- LDL >=160 >=130 10/12/2024 10:1 7 AM CDT Bairon Beckham MD LABORATORY Final Resul t [facility] [address] [place] [address], [place] [phone] * EGD GENERIC (05/31/2023) 05/31/2023 us [facility] Scanned SCANNING Final Resu lt * COLONOSCOPY GENERIC (05/31/2023) 05/31/2023 us [facility] Scanned SCANNING Final Resu lt * BONE DENSITY GENERIC (12/08/2021) Anatomical Region Laterality Modality Other 12/08/2021 Narrative 12/08/2021 Ordered by an unspecified provider. Documents Scanned SCANNING Final Result from Last 3 Months or Most Recently Relevant to Health Maintenance Insurance [facility]ICARE [facility] Advance Directives Documents on File Type Date Recorded Patient Social Security Assessor Expl anation Power of Fiber Technologist 03/08/2023 POWER OF A TTY Care Teams Epic Radiant Analyst Relationship Specialty [place] [address] [place] [address] PCP - General FAMILY PRACTICE 05/10/18
--- OUTSIDE RECORDS SUMMARY | 2024-12-04 12:03 | XMS_ITS | Clinical Summary ---
Author Organization [facility] Address [address] [place] [address] Care Team Providers Care Slotter Operator Helper Name Role Phone Robbin Beckham MD Primary Care Provider [phone] Amada Barahona NP Unavailable [phone] Haydee Fleming Unavailable [phone] Allergies No known active allergies Medications amLODIPine [...] Date Type Department Care Team Description 11/21/2024 2:00 PM CDT Office Visit [address] Building [address] [place] [phone] Ivanna Yip MD Age-related osteoporosis with current pathological fracture with routine healing, subsequent encounter (Primary Dx) 11/21/[address] [place] [phone] Ivanna Yip MD Treatment Plan Update (New Evenity ) 10/28/2024 Results Follow-Up [address] [place] [phone] Ivanna Yip MD XR Spine Lumbar 2 or 3 Views 10/25/2024 Telephone [facility] [address] [place] [address] Advanced Medicine 12th [place] [address] [place] [phone] Delfina Fraga RMA 10/22/2024 10:15 AM CDT - 10/22/2024 11:59 PM CDT Hospital Encounter [facility] [address] [place] [address] Compression fracture of T12 vertebra with routine healing, subsequent encounter Discharge Disposition: Discharge to home or self care 10/22/2024 8:45 AM CDT - 10/22/2024 11:59 PM CDT Hospital Encounter [facility] [address] [place] [address] Right shoulder pain, unspecified chronicity Discharge Disposition: Discharge to home or self care 10/22/2024 8:30 AM CDT Office Visit [facility] [address] [facility] 2nd Floor [address] [place] [address] Benjamin Mora PA Tendinitis of right rotator cuff (Primary Dx); Right shoulder pain, unspecified chronicity from Last 3 Months Surgical History Surgery Date Site/Laterality Comments HYSTERECTOMY Medical History Medical History Date Comments Arthritis Gastroesophagitis Sleep apnea Ulcerative colitis (HCC) Family History Medical History Relation Name Comments Arthritis Father Hypertension Father Cancer Mother Osteoporosis Mother Hip fracture Sister Osteoporosis Sister Broken bones Neg Hx Kyphosis Neg Hx Scoliosis Neg Hx Relation Name Status Comments [...] on file Legal Sex 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 Gender Identity Not on file Sexual Orientation [...] 11/21/2024 2:08 PM CDT Plan of Treatment Health Maintenance Due Date Last Done Comments Colon Cancer Screening-Colonoscopy 1955 Depression Screening 1955 Fall Risk Assessment 1955 Hepatitis C Screening 1955 DTaP/Tdap/Td Vaccine (1 - Tdap) 1964 Hepatitis B Screening 1971 Well Visit 65+ 2018 Pneumococcal vaccine 65+ (2 of 2 - PCV) 04/22/2021 04/22/2020 Covid-19 Vaccine ( - 2023-2 5 season) 2024 06/03/2021, 08/29/2020, 08/01/2020 Breast Cancer Screening-Mammogram 09/25/2024 09/26/2023, 09/26/2023, 09/02/2021 Osteoporosis Screening-Bone Density Scan 08/14/2026 08/14/2024, 12/28/2022, 12/08/2021, Additional history exists Zoster Vaccine Completed 09/14/2021, [...] AM CDT Right shoulder pain, unspecified chronicity [place] ARTHROCENTESIS ASPIR&/INJ MAJOR JT/BURSA W/O US Routine 10/22/2024 8:30 AM CDT Tendinitis of right rotator cuff DEXA TBS AXIAL SKELETON BONE DENSITY 1 OR MORE SITES Schedule Routine, Read Routine (OP Routine) 08/14/2024 11:21 AM BLEACH BOILER PACKER Age-related osteoporosis without current pathological fracture from [...] by: Donovan Steele D.O. Ivanna Yip MD [facility] [place] XR PROCEDURES Final Resul t * XR [...] Electronically signed by: Vivek Armas M.D. Benjamin PDEERSEN IMG XR PROCEDURES Final Result * [place] ARTHROCENTESIS ASPIR&/INJ MAJOR JT/BURSA W/O US (10/22/2024 8:30 AM CDT) Narrative Benjamin Mora PA - 10/22/2024 8:30 AM CDT Benjamin Mora PA 10/22/2024 9:27 AM Large Joint Injection: R subacromial bursa Performed by: eBnjamin Mora PA Authorized by: Benjamin Mora PA [...] the procedure well with no immediate complications Benjamin PEDERSEN IN CLINIC/BEDSIDE ORDERABLES Fi nal Result * Dexa TBS Axial Skeleton Bone Density 1 or more sites (08/14/2024 11:21 AM BLEACH BOILER PACKER) Anatomical Region Laterality Modality Wrist, Body N/A Radiographic Anai ging Narrative 08/14/2024 8:41 PM BLEACH BOILER PACKER Patient Name: Oscar Mckeon Date of : 1955 Date of scan: 08/14/2024 Bone mineral density was performed on a [place] Discovery Densitometer. Based on machine cross-calibration and [...] by the International Society of Clinical Densitometry. [id number] Ivanna Yip MD IMG DXA PROCEDURES Final Resu lt from Last 3 Months or Most Recently Relevant to Health Maintenance Insurance [employer] [facility] OPEN ACCESS MEDICARE [facility] MEDICARE [facility] [place] [address] [facility] Care Teams Slotter Operator Helper Relationship Specialty [place] [address] [facility] [address] [place] [address] PCP - General 01/06/18 [place] [address] [facility] [address] [place] [address] Family Practice 01/06/18 [place] [address] [facility] [address] [place] [address] Physician Reference Investigator Physician Reference Investigator 05/08/24
--- OUTSIDE RECORDS SUMMARY | 2024-12-04 12:03 | XMS_ITS | Encounter Summary ---
Author Organization [facility] Address [address] [place] [address] Care Team Providers Care Medical Biller/Coder Name Role Phone Robbin Beckham MD Primary Care Provider [phone] Encounter Details Date Type Department Care Team (Late st Contact Info) Description 10/12/2024 Results Follow-Up [facility] Family & Internal Medicine - [place] [id number] [place] [phone] [place] [id number] [place] [address] LIPID PANEL, MG SCREENING W SJ FELICIA DIGI Social History Tobacco Use Types Packs/Day Years [...] on file documented as of this encounter Functional Status * Over the past 2 weeks, how often have you been bothered by any of the following problems? Question Answer Date of Assessment Author Status Little interest or pleasure in doing things Not at all 10/12/2024 9:48 AM CDT Carissa Tamez MA Active Feeling down, depressed, or hopeless Not at all 10/12/2024 9:48 AM CDT Carissa Tamez MA Activ e Patient Health Questionnaire-2 Score 0 10/12/2024 9:48 AM CDT Carissa Tamez MA Active * If you checked off any problems on this questionnaire so far, Question Answer Date of Assessment Author Status How difficult have these problems made it for you to do your work, take care of things at home, or get along with other people? Not difficult at all 10/12/2024 9:48 AM CDT Carissa Tamez MA Active documented as of this encounter Progress Notes * Geetha Kahn RN - 11/29/2024 1:01 PM CDT LVM for pt to call office. * Robbin Beckham MD - 11/28/2024 5:27 PM CDT No evidence of malignancy please repeat in one year * Robbin Beckham MD - 10/12/2024 2:25 PM CDT Lipids are ok documented in this encounter Plan of Treatment Not on file documented as of this encounter Visit Diagnoses Not on filedocumented in this encounter Additional Health Concerns Assessment Noted Time PHQ-9 Depression Total Score: 0 05/07/20 21 9:12 AM YARN SKEINS EXAMINER documented as of this encounter Care Teams Medical Biller/Coder Relationship Specialty [place] [address] [place] [address] PCP - General FAMILY PRACTICE 05/10/18 documented as of this encounter
--- OUTSIDE RECORDS SUMMARY | 2024-12-04 12:03 | XMS_ITS | Encounter Summary ---
Author Organization [facility] Address [facility] [place] [address] Care Team Providers Care Tile Applicator Name Role Phone Robbin Beckham MD Primary Care Provider [phone] Encounter Details Date Type Department Care Team (Late st Contact Info) Description 10/11/2023 [email or web address] Message Enc [facility] Medical Group Family & Internal Medicine [facility] [id number] [place] [phone] Aleksander, [facility] Provider Due for appt Social History Tobacco [...] Total Score: 0 11/18/20 21 9:12 AM PAINTER SUPERVISOR documented as of this encounter Care Teams Tile Applicator Relationship Specialty [place] [address] [place] [address] PCP - General FAMILY PRACTICE 05/10/18 documented as of this encounter
--- OUTSIDE RECORDS SUMMARY | 2024-12-04 12:03 | XMS_ITS | Encounter Summary ---
Author Organization [facility] Address [address] [place] [address] Phone Care Team Providers Care Sheet Folder Name Role Phone Robbin Beckham MD Primary Care Provider [phone] Amada Barahona NP Unavailable [phone] Haydee Fleming Unavailable [phone] Reason for Visit * Reason Onset Date Comments Treatment Plan Update 11/21/2024 New Evenit y Encounter Details Date Type Department Care Team (Late st Contact Info) Description 11/21/2024 Telephone [facility] Medical Office Building [address] [place] [address] Ivanna Yip MD [address] [facility] [address] [place] [address] Treatment Plan Update (New Evenity ) Social History Tobacco Use Types Packs/Day Years Used Date Smoking Tobacco: Former Cigarettes Q uit: 2006 Smokeless Tobacco: Never Alcohol Use Standard Drinks/Week Comments Defer 0 (1 standard drink = 0.6 oz pur e alcohol) Comments Unknown Sex and Gender Information Value Date Recorded Sex Assigned at Not on file Legal Sex Female 3:39 AM DEPUTY HEAD Gender Identity Not on file Sexual Orientation Not on file 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 file Not on file Not on file documented as of this encounter Miscellaneous Notes * Telephone Encounter - Kye Richards CMA - 12/03/2024 2:07 PM CDT Spoke with pt and pt aware that infusion center will contact her to schedule Evenity . Infusion Appointment has been requested * Telephone Encounter - Kye Richards CMA - 11/21/2024 4:34 PM CDT Patient was seen by Dr. Yip today for an office visit. The following [facility] the [facility] Additional Comments:11/12 F/U keep appointment that was previously scheduled documented in this encounter Plan of Treatment Not on file documented as of this encounter Visit Diagnoses Diagnosis Age-related osteoporosis with current pathological fracture with routine healing, subsequent encounter- Primary documented in this encounter Orders Appointment Requests Count Last Ordered Date Fi rst Ordered Date INFUSION APPT REQUEST 30 MIN 1 12/03/2024 documented in this encounter Care Teams Sheet Folder Relationship Specialty [place] [address] [place], [place] [id number] PCP - General 01/06/18 [place] [address] [place] [address] Family Practice 01/06/18 [place] [address] [place] [address] Physician Memorial Counselor Physician Memorial Counselor 05/08/24 documented as of this encounter
[2024-12-08 19:23] LABS: Calprotectin, Stool 68 mcg/g
== END 2024-12-04 10:56 | disposition home or self-care (01) ==
PROVIDERS: PCP Family Medicine; Visit Provider Nurse Practitioner Family
DX: K51.90 Ulcerative colitis, unspecified, without complications (principal)
CPT/HCPCS: 83993

== ENCOUNTER 2025-01-29 12:04 | Outpatient (CLI) | payer MEDICARE, SELFPAY ==
--- OUTSIDE RECORDS SUMMARY | 2025-01-29 12:35 | XMS_ITS | Encounter Summary ---
Author Organization [facility] Address [facility] [place] [address] Care Team Providers Care Loan Consultant Name Role Phone Robbin Beckham MD Primary Care Provider [phone] Encounter Details Date Type Department Care Team (Late st Contact Info) Description 01/24/2023 Therapy Plan [facility] [address] [place] [address] Ivanna Yip MD [address] [place] [address] Social History Tobacco Use Types Packs/Day Years [...] Depression Total Score: 0 05/07/20 9:12 AM INSURANCE REPRESENTATIVE documented as of this encounter Care Teams Loan Consultant Relationship Specialty [place] [address] [place] [address] PCP - General FAMILY PRACTICE 05/10/18 documented as of this encounter
--- OUTSIDE RECORDS SUMMARY | 2025-01-29 12:35 | XMS_ITS | Encounter Summary ---
Author Organization [facility] Address [facility] [place] [address] Care Team Providers Care Child And Family Therapist Name Role Phone Robbin Beckham MD Primary Care Provider Encounter Details Date Type Department Care Team (Late st Contact Info) Description 12/28/2021 Therapy Plan [facility] Day Services [address] [place] [address] Ivanna Yip MD [address] [place] [address] Social History Tobacco Use Types Packs/Day Years [...] Rule Out 08/05/2022 08/05/2022 08/05/2022 10:03 AM POWERHOUSE ENGINEER COVID-19 Confirmed 08/05/2022 08/05/2022 12:32 AM CDT Assessment Noted Time PHQ-9 Depression Total Score: 0 05/07/20 9:12 AM POWERHOUSE ENGINEER documented as of this encounter Care Teams Child And Family Therapist Relationship Specialty [place] [address] [place] [address] PCP - General FAMILY PRACTICE 05/10/18 documented as of this encounter
--- OUTSIDE RECORDS SUMMARY | 2025-01-29 12:35 | XMS_ITS | Encounter Summary ---
Author Organization [facility] Address [facility] [place] [address] Care Team Providers Care Ware Finisher Name Role Phone Robbin Beckham MD Primary Care Provider [phone] Encounter Details Date Type Department Care Team (Late st Contact Info) Description 10/11/2023 ZeroMail Message Enc [facility] Family & Internal Medicine [facility] [id number] [place] [phone] [place], [facility] Provider Due for appt Social History Tobacco [...] Total Score: 0 11/18/20 21 9:12 AM VESSEL MASTER documented as of this encounter Care Teams Ware Finisher Relationship Specialty [place] [address] [place] [address] PCP - General FAMILY PRACTICE 05/10/18 documented as of this encounter
--- OUTSIDE RECORDS SUMMARY | 2025-01-29 12:35 | XMS_ITS | Clinical Summary ---
Author Organization [facility] Address [address] [place] [address] Care Team Providers Care All Around Presser Name Role Phone Robbin Beckham MD Primary Care Provider [phone] Amada Barahona NP Unavailable [phone] Haydee Fleming Unavailable [phone] Allergies No known active allergies Medications amLODIPine [...] predniSONE (DELTASONE) 5 mg tablet 4 Active vedolizumab (ENTYVIO) 300 mg recon solnIndications :Ulcerative Colitis Infuse 5 mL (300 mg total) IV every 8 (eight) weeks Active Active Problems Problem Noted Date Diagnosed Date Age-related osteoporosis wit hout current pathological fracture 05/04/2018 Closed stable burst fracture of eighth thoracic vertebra with routine healing 03/30/2018 Encounters Date Type Department Care Team Description 01/25/2025 11:00 AM CDT Infusion [facility] [address] [place] [address] [phone] Age-related osteoporosis without current pathological fracture (Primary Dx) 01/21/2025 Orders Only [facility] Special[facility] Infusion [facility] [address] [place] [phone] Junior Colon RN 12/24/2024 11:00 AM CDT Clinical Support [facility] Special[facility] Infusion [facility] [address] [place] [phone] Age-related osteoporosis without current pathological fracture (Primary Dx) 11/21/2024 2:00 PM CDT Office Visit [address] [place] [phone] Ivanna Yip MD Age-related osteoporosis with current pathological fracture with routine healing, subsequent encounter (Primary Dx) 11/21/[address] [place] [phone] Ivanna Yip MD Treatment Plan Update (New Evenity ) from Last 3 Months Surgical History Surgery Date Site/Laterality Comments HYSTERECTOMY Medical History Medical History Date Comments Arthritis Gastroesophagitis Sleep apnea Ulcerative colitis Family History Medical History Relation Name Comments Arthritis Father Hypertension Father Cancer Mother Osteoporosis Mother Hip fracture Sister Osteoporosis Sister Broken bones Neg Hx Kyphosis Neg Hx Scoliosis Neg Hx Relation Name Status Comments Father Mother Sister Social History Tobacco Use Types Packs/Day Years Used Date Smoking Tobacco: Former Cigarettes Q uit: 2007 Smokeless Tobacco: Never Tobacco Cessation:Counseling Given: Not Answered Alcohol Use Standard Drinks/Week Comments Defer 0 (1 standard drink = 0.6 oz pur e alcohol) Hunger Vital Sign Answer Date Recorded Within the past 12 months, y ou worried that your food would run out before you got the money to buy more. Never true 12/25/19 25 Within the past 12 months, t he food you bought just didn't last and you didn't have money to get more. Never true 12/24/2024 Personal Safety Answer Date Recorded Have you ever been in or are you currently in a harmful physical or emotional relationship or is someone making you feel afraid or unsafe? 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 Gender Identity Not on file Sexual Orientation Not on file 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 file Not on file Not on file Obstetrics History Last Filed Vital Signs Vital Sign Reading Time Taken Comments Blood Pressure 157/81 12/24/2024 10:30 AM CDT Pulse 74 12/24/2024 10:30 AM CDT Temperature 36.8 C (98.2 F) 12/24/2024 10:30 AM CDT Respiratory Rate 16 12/24/2024 10:30 AM CDT Oxygen Saturation 98% 12/24/2024 10:30 AM CDT Inhaled Oxygen Concentration - - Weight 69.2 kg (152 lb 8 oz) 12/24/2024 10:30 AM CDT Height 157.5 cm (5' 2) 12/24/2024 10:30 AM CDT Body Mass Index 27.89 12/24/2024 10:30 AM CDT Plan of Treatment Health Maintenance Due Date Last Done Comments Colon Cancer Screening-Colonoscopy 1955 Depression Screening 1955 Fall Risk Assessment 1955 Hepatitis C Screening 1955 DTaP/Tdap/Td Vaccine (1 - Tdap) 1964 Hepatitis B Screening 1971 Well Visit 65+ 2018 Pneumococcal vaccine 65+ (2 of 2 - PCV) 04/22/2021 04/22/2020 Covid-19 Vaccine (3 - Modern a risk series) 07/01/2021 06/03/2021, 08/29/2020, 08/01/2020 Influenza Vaccine (#1) 2025 04/12/2024, 2021 Breast Cancer Screening-Mammogram 11/27/2025 11/27/2024, 11/27/2024, 09/26/2023, Additional history exists Osteoporosis Screening-Bone Density Scan 08/14/2026 08/14/2024, 12/28/2022, 12/08/2021, Additional history exists Zoster Vaccine Completed 09/14/2021, 05/20, 11/18/2014 Procedures Procedure Name Priority Date/Time Associated Diagnosis Comments DEXA TBS AXIAL SKELETON BONE DENSITY 1 OR MORE SITES Schedule Routine, Read Routine (OP Routine) 08/14/2024 11:21 AM FABRIC MACHINE OPERATOR Age-related osteoporosis without current pathological fracture from Last 3 Months or Most Recently Relevant to Health Maintenance Results * Dexa TBS Axial Skeleton Bone Density 1 or more sites (08/14/2024 11:21 AM FABRIC MACHINE OPERATOR) Anatomical Region Laterality Modality Wrist, Body N/A Radiographic Anai ging Narrative 08/14/2024 8:41 PM FABRIC MACHINE OPERATOR Patient Name: Rosario Mckeon Date of : 1955 Date of scan: 08/14/2024 Bone mineral density was performed on a HoloREPUCOM Discovery Densitometer. Based on machine cross-calibration and [...] by the International Society of Clinical Densitometry. [id number] Ivanna Yip MD IMG DXA PROCEDURES Final Resu lt from Last 3 Months or Most Recently Relevant to Health Maintenance Insurance [employer]IC[facility] MEDICARE [facility] MEDICARE AARP Care Teams All Around Presser Relationship Specialty [place] [address] [place] [address] PCP - General 01/06/18 Amada Barahona APPLIED PSYCHOLOGY PROFESSOR [address] [place] [address] Family Practice 01/06/18 [place] [address] [place] [address] Physician Chemistry Department Chair Physician Chemistry Department Chair 05/08/24
--- OUTSIDE RECORDS SUMMARY | 2025-01-29 12:35 | XMS_ITS | Clinical Summary ---
Author Organization [facility] Address [address] [facility] [place] [address] Care Team Providers Care Strawberry Grower Name Role Phone Robbin Beckham MD Primary Care Provider [phone] Source Comments [facility],non-owned Affiliates and Associated Physician Practices is amultiple site organization consisting of ambulatory clinics and hospital sitesin [place], [place], [place] and [place]. This disclosure is being madepursuant to the Care Everywhere program and may not contain all information available regarding this patient. Last updated 18.[facility] Allergies No known active allergies Medications * Be aware that medications may not be up to date on this document. Alwaysverify current medications with the patient. omeprazole (PriLOSEC) 40 MG capsule Take 1 (one) capsule by mouth once daily 5 Active amLODIPine (Norvasc) 10 MG tablet Take 1 (one) tablet by mouth once daily 5 Active mesalamine EC (Lialda) 1.2 g tablet TAKE 4 TABLETS(4.8 GRAMS) BY MOUTH DAILY WITH FOOD 5 Active calcium carbonate (Os-Kush 500) 1250 (500 Ca) MG tablet Take 2.5 (two and one-half) tablets by mouth once daily Active vedolizumab (Entyvio) injection 300 (three hundred) mg by Intravenous route 5 Active vitamin D3 (Cholecalcifero l) 10 MCG (400 UNIT) capsule Active Encounters Date Type Department Care Team Description 01/10/2025 3:05 PM CDT Ancillary Procedure [facility] Orthopedics - Radiology [address] [place] [address] Wing Munguia MD Pain in both knees, unspecified chronicity 01/10/2025 2:40 PM CDT Office Visit [facility] Orthopedics [id number] [place] [address], [address] [phone] Wing Munguia MD Pain in both knees, unspecified chronicity (Primary Dx) from Last 3 Months Social History Tobacco Use Types Packs/Day Years Used Date Smoking Tobacco: Never Smokeless Tobacco: Never Alcohol Use Standard Drinks/Week Comments Never 0 (1 standard drink = 0.6 oz pur e alcohol) PHQ-2 Answer Date Recorded Patient Health Questionnaire-2 Score 0 01/10/2025 Comments Unknown Sex and Gender Information Value Date Recorded Sex Assigned at Not on file 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 Gender Identity Not on file Sexual Orientation Not on file Last Filed Vital Signs Vital Sign Reading Time Taken Comments Blood Pressure - - Pulse - - Temperature - - Respiratory Rate - - Oxygen Saturation - - Inhaled Oxygen Concentration - - Weight 68 kg (150 lb) 01/10/2025 3:01 PM CDT Height 157.5 cm (5' 2) 01/10/2025 3:01 PM CDT Body Mass Index 27.44 01/10/2025 3:01 PM CDT Plan of Treatment Upcoming Encounters Date Type Department Care Team (Late st Contact Info) Description 02/14/2025 11:00 AM CDT Office Visit [facility] Orthopedics [address] [place] [phone] Neal Reese PA-C [id number] [place] [phone] 02/27/2025 11:10 AM CDT Office Visit [facility] [address] [place] [phone] Mickie Carrington MD [address] [place] [address] Health Maintenance Due Date Last Done Comments COLOGUARD (AGES 45-75) - COLON CA SCREENING 1955 COLON MONITORING 1953 COLONOSCOPY - COLON CA SCREENING 1953 CT COLONOGRAPHY - COLON CA SCREENING 1955 Colorectal Cancer Screening 1953 FIT - COLON CA SCREENING 1953 FLEX SIG - COLON CA SCREENING 1955 MEDICARE AWV 12 MONTHS 1953 HEPATITIS C SCREENING 03/24/1971 DTAP/TDAP/TD VACCINES (1 - Tdap) 1972 PNEUMOCOCCAL VACCINE 50+ (1 of 1 - PCV) 2003 ZOSTER VACCINE (1 of 2) 2003 COVID-19 VACCINE (4 - season) 2024 06/03/2021, 08/29/2020, 08/01/2020 INFLUENZA VACCINE (#1) 2025 04/12/2024, 2021 MAMMOGRAM 11/27/2026 11/27/2024, 11/18, 09/26/2023, Additional history exists Respiratory Syncytial Virus (RSV) Vaccine Pt: or over 60 yrs (1 - 1-dose 75+ series) 2028 LIPID TESTING 10/12/2029 10/12/2024 BONE DENSITY TESTING Completed 12/08/2021, 12/02/2020, 05/30/2019, Additional history exists DEPRESSION SCREENING Completed 01/10/2025 HEPATITIS B VACCINE Aged Out No longe r eligible based on patient's age to complete this topic HIB VACCINE Aged Out No longer eligi ble based on patient's age to complete this topic HPV VACCINE Aged Out No longer eligi ble based on patient's age to complete this topic MENINGOCOCCAL (Group B) VACCINE SHARED DECISION-MAKING Aged Out No longer eligible based on patient's age to complete this topic MENINGOCOCCAL GROUPS A/C/Y/W VACCINE Aged Out No longer eligible based on patient's age to complete this topic Procedures Procedure Name Priority Date/Time Associated Diagnosis Comments XR KNEE BILAT 3VW Routine 01/10/2025 3:1 0 PM CDT Pain in both knees, unspecified chronicity from Last 3 Months Results * XR Knee Bilat 3Vw (01/10/2025 3:10 PM CDT) Narrative [facility] [address] - 01/10/2025 3:10 PM CDT Please see progress note in Epic for results. us Wing Munguia MD DIAGNOSTIC IMAGING ORDERABLES Final Result [facility] [address] from Last 3 Months Insurance MEDICARE [facility] MEDICARE AARP Care Teams Strawberry Grower Relationship Specialty [place] [address] [place] [address] PCP - General Family Medicine 01/10/25
--- OUTSIDE RECORDS SUMMARY | 2025-01-29 12:35 | XMS_ITS | Clinical Summary ---
Author Organization [facility] Address [facility] [place] [address] Care Team Providers Care Lumber Mover Name Role Phone Bairon Beckham MD Primary [...] and nightly. Active meloxicam (MOBIC) 15 MG tabletIndicatio ns:Arthritis Take 1 tablet (15 mg total) by mouth daily. 90 tablet 1 05/16/20 24 Active Additional Information Patient not taking.Reported on 10/12/2024 ENTYVIO 300 MG injection 08/28/19 25 Active mesalamine EC (LIALDA) 1.2 g Tab EC tabletIndicatio ns:Irritable bowel syndrome, unspecified type TAKE 4 TABLETS(4.8 GRAMS) BY MOUTH DAILY WITH FOOD 360 tablet 1 12/11/19 25 Active omeprazole (PRILOSEC) 40 MG capsuleIndicati ons:Gastroesoph ageal reflux disease without esophagitis TAKE 1 CAPSULE(40 MG) BY MOUTH DAILY 90 capsule 01/01/20 25 Active amLODIPine (NORVASC) 10 MG tabletIndicatio ns:Essential hypertension TAKE 1 TABLET(10 MG) BY MOUTH DAILY 90 tablet 1 01/11/20 25 Active omeprazole (PRILOSEC) 40 MG capsuleIndicati ons:Gastroesoph ageal reflux disease without esophagitis Take 1 capsule (40 mg total) by mouth daily. 90 capsule 10/04/19 25 025 Discontinued amLODIPine (NORVASC) 10 MG tabletIndicatio ns:Essential hypertension Take 1 tablet (10 mg total) by mouth daily. 90 tablet 1 10/13/19 25 025 Discontinued Active Problems Problem Noted Date Diagnosed Date Neck pain 04/03/2024 Left shoulder pain 04/03/2024 Bilateral knee pain 10/17/2023 Age-related osteoporosis wit hout current pathological fracture 05/04/2018 Closed stable burst fracture of eighth thoracic vertebra with routine healing 03/30/2018 Fracture of thoracic spine ([facility]) Back pain, acute 11/16/2017 Back strain 11/07/2017 Arthritis 12/20/2016 Tracey esophagus 12/20/2016 GERD (gastroesophageal reflux disease) 7 Hyperlipidemia 12/20/2016 Hypertension 12/20/2016 Irritable bowel 12/20/2016 Musculoskeletal pain 12/20/2016 Ulcerative colitis ([facility]) 12/20/2016 Vitamin D deficiency 12/20/2016 Resolved Problems Problem Noted Date Diagnosed Date Resolved Date Wears glasses 12/20/2016 02/29/2020 Encounter for preventive health examination 11/23/2016 02/29/2020 Encounters Date Type Department Care Team Description 12/04/2024 Scan [facility] Scanned, [facility] (SCAN) 11/27/2024 10:24 AM CDT - 11/27/2024 11:59 PM CDT Hospital Encounter [facility] [address] [place] [address] Bairon Beckham MD Discharge Disposition: Home or Self Care (Routine Discharge) 11/27/2024 Travel from Last 3 Months Immunizations Immunization Administration Dates Next Due Fluzone High Dose (IIV, triv alent, 0.5mL) 04/12/2024 Fluzone High Dose - >Age 65 (Prefilled Syringe) 06/06/2023,05/03/2022,05/07/2021,2019 Influenza Adult (Generic) 05/03/2022 MODERNA COVID-19 (12+) MRNA, LNP-S, PF, 100 MCG/ 0.5 ML DOSE 08/29/2020,08/01/2020 MODERNA COVID-19 (ROAD EQUIPMENT OPERATOR KELVIN DARLYN), MRNA, LNP-S, PF, 50 MCG/ 0.25 ML DOSE 06/03/2021 Pneumococcal (Pneumovax 23) 04/22/2020 Shingrix 09/14/2021,06/01/2021 Zoster (Zostavax) [address] Unt/0.65Ml 11/18/2014 Family History Medical History Relation [...] Given: No Comments:former user tobacco - quit 2005 Alcohol Use Standard Drinks/Week Comments Yes 0 [...] 12/28/2022, 12/08/2021, Additional history exists PHQ-2 (Physician [place]) Completed 10/12/2024 Meningococcal B Vaccine Aged Out [...] Associated Diagnosis Comments OUTSIDE LAB (SCAN ORDER) 12/04/2024 MG SCREENING W SJ FELICIA DIGI Routine 11/27/2024 11:03 AM CDT Encounter for screening mammogram for breast cancer EGD GENERIC (SCAN ORDER) 05/31/2023 COLONOSCOPY GENERIC (SCAN ORDER) 05/31/2023 BONE DENSITY GENERIC (SCAN ORDER) 12/08/2021 from Last 3 Months or Most Recently Relevant to Health Maintenance Results * OUTSIDE LAB (SCAN ORDER) (12/04/2024) 12/04/2024 [facility] Scanned SCANNING Final [...] 4:56 PM Narrative 11/28/2024 5:04 PM CDT [place] [id number] [place] [address] EXAMINATION: Digital bilateral screening mammogram with 3-D [...] Resul t * EGD GENERIC (05/31/2023) 05/31/2023 [facility] Scanned SCANNING Final Resu lt * COLONOSCOPY GENERIC (05/31/2023) 05/31/2023 [facility] Scanned SCANNING Final Resu lt * BONE DENSITY GENERIC (12/08/2021) Anatomical Region Laterality Modality Other 12/08/2021 Narrative 12/08/2021 Ordered by an unspecified provider. us Documents Scanned SCANNING Final Result from Last 3 Months or Most Recently Relevant to Health Maintenance Insurance MEDICARE [facility] Advance Directives Documents on File Type Date Recorded Patient Bench Worker Hollow Handle Expl anation Power of Supervisor Winding Department 03/08/2023 POWER OF A TTY Care Teams Lumber Mover Relationship Specialty [place] [address] [place] [address] PCP - General FAMILY PRACTICE 05/10/18
--- OUTSIDE RECORDS SUMMARY | 2025-01-29 12:35 | XMS_ITS | Encounter Summary ---
Author Organization [facility] Address [facility] [place] [address] Care Team Providers Care Major League Baseball Umpire Name Role Phone Robbin Beckham MD Primary Care Provider Encounter Details Date Type Department Care Team (Late st Contact Info) Description 11/22/2019 Prep for Procedure [facility] One Day Services [address] [place] [address] Mohan Lamas MD [address] [address] Social History Tobacco Use Types [...] DETECTED NOT DETECTED 11/27/2019 8:09 PM CDT [facility] Comment: A Not Detected (negative) test result [...] providers and patients using the following websites: https://www.[employer]/home/Covid-19/HCP/NAAT/fact-sheet2 https://www.[employer]/home/Covid-19/Patients/NAAT/ fact-sheet2 This test has been authorized by the FDA under an Emergency Use Authorization (EUA) for use by authorized laboratories. Due to the current public health emergency, [employer] is receiving a high volume of samples [...] about COVID-19 can be found at the [employer] website: www.[employer]/Covid19. Test performed at [facility] [place] [address] [place] [address] Director: MARIO MIJARES DO,MPH NASOPHARYNGEAL SWAB / Unknown 11/26/2019 1:08 PM CDT us Mohan Lamas MD MICROBIOLOGY - GENERAL ORDERABLE S Final Result [facility] [address] [place] [address], documented in this encounter Visit Diagnoses Diagnosis Pre-op exam- Primary Preoperative examination, unspecified documented in this encounter Additional Health Concerns Infection Onset Date Last Indicated Resolved Time COVID-19 Rule Out 11/26/2019 11/26/2019 11/27/2019 8:09 PM CDT COVID-19 Rule Out 08/05/2022 08/05/2022 08/05/2022 10:03 AM ADVERTISING AGENCY MANAGER COVID-19 Confirmed 08/05/2022 08/05/2022 12:32 AM CDT documented as of this encounter Care Teams [employer] Baseball Umpire Relationship Specialty [place] [address] [place] [address] PCP - General FAMILY PRACTICE 05/10/18 documented as of this encounter
[2025-01-29 12:39] LABS: Hematocrit 39.7 % (37.0-47.0); Hemoglobin 12.6 g/dL (12.0-15.0); Mean Corpuscular HGB Conc 31.7 g/dl (32-36); Mean Corpuscular Hemoglobin 29.1 pg (26-34); Mean Corpuscular Volume 91.7 fl (80-100); Platelet Count Result 320 k/mm3 (150-375); Red Blood Count 4.33 M/mm3 (4.2-5.4); White Blood Count 7.5 K/mm3 (4.5-10.0)
[2025-01-29 12:54] LABS: Alanine Aminotransferase 22 U/L (6-35); Albumin Level 4.2 g/dL (3.5-5.1); Alkaline Phosphatase 60 U/L (38-126); Anion Gap 8 mmol/L (4-12); Aspartate Amino Transferase 27 U/L (14-36); Bilirubin,Total 0.6 mg/dL (0.2-1.3); Blood Urea Nitrogen 15 mg/dL (7-17); CRP 0.8 mg/dL (<1.0); Calcium 9.1 mg/dL (8.4-10.2); Carbon Dioxide 25 mmol/L (22-30); Chloride 106 mmol/L (98-107); Estimated Glomerular Filt Rate > 60; Glucose 94 mg/dL (65-110); Potassium 3.7 mmol/L (3.4-5.0); Sodium 139 mmol/L (137-145); Total Protein 7.5 g/dL (6.3-8.2)
== END 2025-01-29 12:05 | disposition home or self-care (01) ==
PROVIDERS: Visit Provider Nurse Practitioner Family
DX: K51.90 Ulcerative colitis, unspecified, without complications (principal)
CPT/HCPCS: 36415; 80053; 85027; 85652; 86140